=== PATIENT | female | born 1970 | race Caucasian/White ===

== ENCOUNTER → 2017-09-19 | Outpatient (CLI) | payer MEDICAID, SELFPAY | PROVIDERS: Family Provider Family Medicine; Visit Provider Family Medicine | DX: M77.9 Enthesopathy, unspecified (principal) | CPT/HCPCS: 73110 ==

== ENCOUNTER → 2018-01-06 16:13 | Outpatient (CLI) | payer MEDICAID, SELFPAY ==
--- NOTE | 2018-01-06 16:21 | MM_ITS ---
MM Dig SC mamm unilat LT CAD CAD Screening ORDERING PHYSICIAN : Sidney Anne MD PATIENT AGE: 47 years GENDER: Female HISTORY 47-year-old with right mastectomy. No hormones no new complaints noncontributory family history. Pacemaker COMPARISON: Previous bilateral mammograms: From 2013, 2014, 2016 TECHNIQUE: Standard CC and MLO images were obtained. R2 CAD reviewed. FINDINGS:LEFT BREAST: Minimal fibroglandular elements bilaterally which with even some regression of such since 2013 and 2014 . No dominant mass nor suspicious calcifications. No architectural distortion. CAD computer review highlights no areas of concern either a minimal glandular density at the lateral retroareolar region is stable enlarged. Only the left breast imaged IMPRESSION: Stable left breast. No new areas of concern . Follow-up in one year recommended BI-RADS Category: 1 Negative RECOMMENDED FOLLOW-UP: 1YR - 1 YEAR FOLLOW-UP (A letter has been sent to the patient regarding results of the study.)
== END ==
PROVIDERS: Family Provider Family Medicine; PCP Family Medicine; Visit Provider Family Medicine
DX: Z12.31 Encounter for screening mammogram for malignant neoplasm of breast (principal)
CPT/HCPCS: 77067

== ENCOUNTER → 2018-06-08 14:25 | Outpatient (POV) | payer MEDICAID, SELFPAY | PROVIDERS: Family Provider Family Medicine; PCP Family Medicine; Visit Provider Specialist | DX: M54.42 Lumbago with sciatica, left side (principal); M54.41 Lumbago with sciatica, right side; G89.29 Other chronic pain | CPT/HCPCS: 95886; 95908 ==

== ENCOUNTER → 2019-02-02 13:29 | Outpatient (CLI) | payer BC, SELFPAY ==
--- NOTE | 2019-02-02 13:33 | CA_ITS ---
PROCEDURE: 2-D M-mode and color Doppler study INDICATIONS FOR THE TEST: Chest pain COPD+ Heart Murmur Tobacco Smoking+ Palpitations Fatigue Syncope Edema Hypertension Diabetes Mellitus Rheumatic Fever SOB+MADDOX Obesity Hyperlipidemia Family History HD Additional History Pacemaker, CM, Rt mastectomy hx of breast cancer PATIENT INFORMATION HEIGHT: 67 WEIGHT: 162 GENDER: Female B/P: 140/78 2-D/M-MODE INTERPRETATION: 2-D MEASUREMENTS OBSERVED VALUES IN CMS Right Ventricular Dimension (RVDd) 1.4 Interventricular Septum (Thickness)(IVsd) 0.7 Left Ventricular Internal Dimensions(LVIDd) 5.1 Left Ventricular Posterior Wall (Thickness)(LVPWd) 0.7 Aortic Root 2.5 Aortic Cusp Separation 2.0 Left Atrial Dimensions (LAD) 3.2 2D 1. Left Atrium is mildly enlarged, left ventricle is normal size, there is no concentric left ventricular hypertrophy, visually estimated ejection fraction 50% with no regional wall motion abnormality. 2. The right atrium and right ventricle are normal size and contractility. There is a pacemaker lead seen right atrium and right ventricle. 3. The aortic valve is minimally thickened and fibrosed. 4. The mitral and tricuspid valve are grossly normal. 5. Pulmonic valve is poorly present. 6. No significant pericardial effusion noted DOPPLER INTERROGATION: Doppler interrogation of the aortic, mitral and tricuspid valvular presence of mild mitral and tricuspid regurgitation, tricuspid regurgitation jet velocity is inadequate for calculation of the right ventricular systolic pressure, grade 1 diastolic dysfunction seen without tissue Doppler evidence of raised left atrial pressure. CONCLUSION: 1. Mildly enlarged left atrium, normal left ventricular size, visually estimated ejection fraction 50% with no regional wall motion abnormality, grade 1 diastolic dysfunction seen without tissue Doppler evidence of raised left atrial pressure. 2. Mild mitral and tricuspid regurgitation 3. No significant pericardial effusion noted.
== END ==
PROVIDERS: PCP Family Medicine; Visit Provider Urology
DX: I42.9 Cardiomyopathy, unspecified (principal); R06.02 Shortness of breath; Z95.0 Presence of cardiac pacemaker
CPT/HCPCS: 93306

== ENCOUNTER → 2019-09-21 14:06 | Outpatient (POV) | payer BC, SELFPAY | PROVIDERS: Visit Provider Dermatology | DX: Z00.00 Encounter for general adult medical examination without abnormal findings (principal) ==

== ENCOUNTER → 2020-02-02 09:36 | Outpatient (CLI) | payer BC, SELFPAY ==
--- NOTE | 2020-02-02 09:40 | MM_ITS ---
PROCEDURE: MM DIG SC MAMM UNILAT LT CAD Digital Breast Tomosynthesis Included CLINICAL INDICATION: SCREENING There has been a previous right mastectomy, there are no current complaints COMPARISON: DMDXUAVL DIG MAMM-DX UNI ADD VIEWS-LT from 01/11/2015 DMSUL DIG MAMM-SCREENING UNI-LT from 04/12/2016 SCUNILT MM Dig SC mamm unilat LT CAD from 01/06/2018 TECHNIQUE: Standard CC and MLO images and 3D Tomosynthesis was obtained. R2 CAD reviewed. FINDINGS: Scattered fibroglandular densities are seen on a background of fatty breast parenchyma. There is no new or suspicious lesion in the breast and there are no suspicious microcalcifications. IMPRESSION: Primarily fatty type breast parenchyma with no suspicious lesions seen BI-RAD Category: 1 Negative FOLLOW-UP: 1YR 1 Year Follow-up (A letter has been sent to the patient regarding results of the study.) Dictated by: Dr. Osito Sevilla MD 02/06/2020 17:[address] Osito Sevilla MD in [place] 02/06/2020 17:25
== END ==
PROVIDERS: PCP Family Medicine; Visit Provider Family Medicine
DX: Z12.31 Encounter for screening mammogram for malignant neoplasm of breast (principal)
CPT/HCPCS: 77063; 77067

== ENCOUNTER → 2020-03-06 18:16 | Outpatient (CLI) | payer BC, SELFPAY ==
--- NOTE | 2020-03-06 18:22 | XR_ITS ---
PROCEDURE: XR MULTIPLE SPINE 6+V CLINICAL INDICATION: CONTUSION OF BACK COMPARISON: Posttraumatic pain FINDINGS: Six views of the cervical spine show no obvious fracture or dislocation. There is mild foraminal narrowing bilaterally at C3-C4 and there is head tilt to the right. Mild facet hypertrophic change C3-C4 and C5. Two views of the T-spine show no acute fracture. Bipolar pacemaker is present from left subclavian approach IMPRESSION: No acute finding. Degenerative change cervical spine Dictated by: Rainer Corrales MD 03/07/2020 05:53 Electronically signed by Rainer Corrales MD in [place] 03/07/2020 05:53
== END ==
PROVIDERS: PCP Family Medicine; Visit Provider Family Medicine
DX: S20.229A Contusion of unspecified back wall of thorax, initial encounter (principal)
CPT/HCPCS: 72084

== ENCOUNTER → 2022-07-01 12:39 | Outpatient (CLI) | payer BC, SELFPAY ==
--- NOTE | 2022-07-01 12:43 | MM_ITS ---
PROCEDURE INFORMATION: Exam: MG Left Screening 3D Mammography Exam date and time: 07/01/2022 12:56 PM Age: 52 years old Clinical indication: Screening. Personal history of right breast cancer, status post right mastectomy. TECHNIQUE: Imaging protocol: Left Screening tomosynthesis and 2D mammography including computer-aided detection (CAD) when performed. COMPARISON: 1. MG MM DIG SC MAMM UNILAT LT CAD 02/02/2020 9:51 AM 2. MG SCUNILT MM Dig SC mamm unilat LT CAD 01/06/2018 4:27 PM 3. MG DMSUL DIG MAMM-SCREENING UNI-LT 04/12/2016 3:43 PM 4. MG DMDXUAVL DIG MAMM-DX UNI ADD VIEWS-LT 01/11/2015 2:30 PM FINDINGS: MAMMOGRAPHY: Breast composition: There are scattered areas of fibroglandular density. Mass: None. Architectural distortion: None. Calcifications: No suspicious calcifications. Asymmetric density: None. Skin thickening: None. Axillary adenopathy: None. Other findings: Battery pack in the left axilla which limits evaluation and accentuates the importance of clinical breast exam. IMPRESSION: No mammographic evidence of malignancy. Annual screening is recommended unless otherwise clinically indicated. ASSESSMENT: BI-RADS Category 1: Negative
== END ==
PROVIDERS: PCP Family Medicine; Visit Provider Family Medicine
DX: Z12.31 Encounter for screening mammogram for malignant neoplasm of breast (principal)
CPT/HCPCS: 77063; 77067

== ENCOUNTER 2022-10-11 09:57 | Day surgery (SDC) | payer BC, SELFPAY ==
[2022-10-11] VITALS (7 sets, daily range): BP systolic 71–119; BP diastolic 39–71; PULSE 60–61; RESP 19–20; TEMP 36.1; O2SAT 93–99; BMI 23.9
--- NOTE | 2022-10-11 07:07 | IR_ITS ---
APPROVED REPORT Patient Location: Outpatient [facility] Adjuster: KYLAH King RT (R) PROCEDURES 1. Pocket Revision 2. Removal of old pacemaker 3. Capping of chronic right atrial lead 4. Insertion of permanent right atrial lead 5. Implant of permanent pacemaker INDICATION Diminished Signal from right atrial lead. Damage to the right atrial lead. Informed consent obtianed prior to procedure, Informed consent was obtained prior to the procedure. COMPLICATIONS None Estimated Blood Loss: Less than 10 ML TECHNIQUE 1% Lidocaine with epinephrine used to anesthetized the left anterior aspect of the chest. Scalpel was used to make the initial cutaneous incision then was used to dissect down tinto the fascia and existing pacemaker generator. The generator was removed from the existing pocket. Digital manipulation was required along with intermitten use of a scalpel to revise the pocket. The atrail lead was removed from the generator. The chronic right atrial lead was capped. The patient was then placed in Trendelenburg position and the subclavian vein was accessed once via the Selinger technique, there is one wire in the vein. A 6 Upper Sorbian sheath was placed under fluoroscopic guidance into the subclavian vein over the wire. The dilator was removed from the sheath. Using fluoroscopic guidance, the atrial lead was the placed into the right atrial appendage and screwed and secured in place. Electrical interrogation demonstrated acceptable thresholds and voltage number. The atrial lead was then secured into place using 3-0 silk. 1 gram of Ancef was used to flush the pocket. Following the pacemaker generator being secured to the fascia and in place, Monocryl was used to close the subcutaneous layers while mert were used to close the cutaneous layer. A pressure dressing was placed and the patient was transferred to the postop holding area in stable condition for postoperative care. INTERROGATION Chronic Atrial lead model number: [id number] Chronic Atrial lead serial number: [id number] P-wave: 3.5 mV Impedence: 860 Ohms Threshold: 0.4ms@1.0v Pacing Parameters: Mode: DDD Base/Max Track: 60/110 bpm ICD Rate Cutoffs: VT: 175 bpm. 2.5 sec, ATP, 41Jx8 VT-1: 155 mpb 2.5 sec Monitor only VF: 220 bpm 1.0 sec Quick convert, 41 J x 8 No diaphragmatic stimulation at 10 volts. IMPRESSION Post Op Wound Care PLAN 1. Post Op Wound Care Electronically signed by : Ulises Fields MD 10/14/2022 09:42:20
[2022-10-11 11:05] LABS: Basophils # 0.1 K/mm3 (0-0.2); Basophils % 1.1 % (0.1-2.0); Eosinophils # 0.2 K/mm3 (0.0-0.4); Eosinophils % 2.6 % (0.1-12.0); Hematocrit 38.6 % (37.0-47.0); Hemoglobin 12.5 g/dL (12.2-16.2); Lymphocytes # 1.7 K/mm3 (0.7-4.5); Lymphocytes % 22.6 % (10-50); Mean Corpuscular HGB Conc 32.4 g/dL (31.8-35.4); Mean Corpuscular Hemoglobin 30.3 pg (27.0-31.2); Mean Corpuscular Volume 93.4 fl (81-99); Mean Platelet Volume 8.6 fl (7.4-10.4); Monocytes # 0.2 K/mm3 (0.1-1.0); Monocytes % 3.1 % (1.7-9.3); Neutrophils # 5.1 K/mm3 (1.8-7.8); Neutrophils % 70.5 % (37.0-80.0); Platelet Count 294 K/mm3 (142-424); Red Blood Count 4.13 M/mm3 (4.20-5.40); Red Cell Distribution Width 13.4 % (11.5-17.5); White Blood Count 7.3 K/mm3 (4.8-10.8)
[2022-10-11 11:06] LABS: Chloride 109 mmol/L (98-107); Sodium 141 mmol/L (136-145)
[2022-10-11 11:07] LABS: Potassium 3.9 mmoL/L (3.5-5.1)
[2022-10-11 11:10] LABS: Anion Gap 8.9 mEq/L (5-15); Blood Urea Nitrogen 9 mg/dl (7-17); Calcium 8.8 mg/dl (8.4-10.2); Carbon Dioxide 27 mmol/L (22.0-30.0); Creatinine Clearance Estimated 70 mL/min (50-200); Estimated Glomerular Filt Rate 58 ml/min (>60); GFR (African American) 70 ML/MIN (>60); Glucose 106 mg/dl (74-100)
--- NOTE | 2022-10-11 12:57 | P.PN_ITS ---
[facility] Disclaimer: The information contained in this section may have been updated after the patient was seen, as this information can be updated by other users. Medical History Cardiac pacemaker in situ Cardiomyopathy History of pacemaker PAF (paroxysmal atrial fibrillation) SOB (shortness of breath) Surgical History History of hysterectomy History of knee surgery Social History Smoking Status: Current every day smoker alcohol intake: never substance use type: marijuana current occupational status: employed and disabled Travel in the last 8 weeks: Inside the [place] [facility] Anesthesia Checklist Patient Identification Patient Identification: Arm Band and Verbal (Name & ) Structural Data Admitted From: Home Planned Operative Procedure/s: Lead revision Consent for Planned Operative Procedure(s) Verified: Yes NPO Status Verified Time NPO: 00:00 Airway Assessment C-Spine Mobility Assessed: Yes TMJ Mobility Assessed: Yes Dentition: Poor Dentition Neurological Assessment Level of Consciousness: Awake Hx Seizures: No Numbness or tingling in extremities: No Anesthesia Plan Anesthesia Risk discussed: Yes Anesthesia Plan: Verified ASA Class: III Anesthesia Type: MAC
--- NOTE | 2022-10-11 14:09 | XR_ITS ---
FINAL REPORT CLINICAL HISTORY: Confirm pacemaker/AID placement COMPARISON: 08/20/2017 FINDINGS: A single PA view of the chest was obtained. There is now a 3 lead pacemaker. The cardiac and mediastinal silhouettes are within normal limits. There are bilateral upper lobe opacities, could be atelectasis but pneumonia is not excluded. There is no effusion or pneumothorax. No acute osseous abnormality is identified. IMPRESSION: Three lead pacemaker. Bilateral upper lobe opacities, may represent atelectasis or pneumonia. Reviewed, Interpreted and Dictated by Chandni Forrest MD Transcribed by Deisi Auguste Authenticated and [facility]
== END 2022-10-11 15:51 | disposition home or self-care (01) ==
LOC: CATHLAB 10:02
PROVIDERS: PCP Family Medicine; Visit Provider Internal Medicine
DX: T82.110A Breakdown (mechanical) of cardiac electrode, initial encounter (principal); F17.210 Nicotine dependence, cigarettes, uncomplicated; Z79.899 Other long term (current) drug therapy; I48.0 Paroxysmal atrial fibrillation; I42.9 Cardiomyopathy, unspecified
CPT/HCPCS: 33216; 71045; 80048; 85025; C1898; J2704

== ENCOUNTER 2022-10-18 14:02 | Emergency (ER) | payer BC, SELFPAY ==
--- NOTE | 2022-10-18 14:15 | XR_ITS ---
FINAL REPORT CLINICAL HISTORY: Dyspnea, CP COMPARISON: 10/11/2022 FINDINGS: SINGLE-VIEW CHEST The heart size is normal. The mediastinum is normal. Left-sided pacer is identified. The lungs are clear. There is no pleural effusion. There is no pneumothorax. IMPRESSION: No acute cardiopulmonary process. Reviewed, Interpreted and Dictated by Sidney Murry MD Transcribed by Deisi Auguste Authenticated and [facility]
--- NOTE | 2022-10-18 14:15 | ECG_ITS ---
APPROVED REPORT Exam: Resting ECG HR:69 bpm ECG Measurements Heart Rate 69 AXES [place] 163 P 75 QRSd 90 QRS 39 QT 401 T 56 QTc 420 Conclusion SINUS RHYTHM NORMAL ECG UNCONFIRMED REPORT Electronically signed by : Garland Bellamy MD 10/18/2022 15:42:51
--- NOTE | 2022-10-18 14:17 | HMH.EDCP ---
Discharge Plan Disposition Patient Disposition: Home, Self-Care Condition: Good Chief Complaint: Chest Pain Prescriptions Prescriptions: No Action albuterol sulfate [ProAir HFA] 90 mcg/actuation HFA aerosol inhaler 2 puff INHALATION Q4-6H PRN (Reason: copd) clonazepam [Klonopin] 0.5 mg tablet 0.5 mg PO TID gabapentin [Neurontin] 100 mg capsule 600 mg PO TID quetiapine 50 mg tablet 100 mg PO QHS Label Comments: Take one tablet at bedtime sertraline 100 mg tablet 100 mg PO QDAY coenzyme Q10 [Co Q-10] 200 mg capsule 200 mg PO DAILY Label Comments: TAKE ONE CAPSULE BY MOUTH EVERY DAY rosuvastatin 10 mg tablet 10 mg PO HS Label Comments: TAKE ONE TABLET BY MOUTH EVERY DAY AT BEDTIME cyanocobalamin (vitamin B-12) 1,000 mcg tablet 1,000 mcg PO DAILY Label Comments: TAKE ONE TABLET BY MOUTH EVERY DAY omeprazole 20 mg capsule,delayed release(DR/EC) 20 mg PO DAILY bisoprolol fumarate 5 mg tablet 5 mg PO DAILY Referrals Follow up/Referrals: Sidney Anne MD [Primary Care Provider] - See instructions Ulises Fields MD [Staff Physician] - 10/21/22 11:00 am Activity Restrictions/Add. Instructions Additional Instructions/Restrictions: Return to the emergency department immediately if you feel worse in any way. Follow-up with Dr. Fields on Friday at 11 AM. He is expecting you in his office. Take all medications as prescribed. Clinical Impressions Clinical Impression: Cardiac pacemaker in situ, Chest pain Instructions Patient Instructions: DI for Atypical Chest Pain Discharge ED Provider: Colton Hodges Chest Pain HPI General Chief Complaint: Chest Pain Stated Complaint: Pacemaker rewired 10/11 Side/back pain Time Seen by Provider: 10/18/22 14:17 Mode of Arrival: Ambulatory History of Present Illness HPI narrative: The patient presents to the emergency department complaining of right sided chest discomfort/pain/tightness. This has been ongoing since last Friday. She had a pacemaker placed on Friday. She states that she is taking all medications as prescribed. She smokes about 1/2 pack/day. She also complains of shortness of breath associated with her chest discomfort. complaint: chest pain Onset (ago): day(s) (6) Related Data Home Medications Medication Instructions Recorded Confirmed albuterol sulfate 90 mcg/actuation 2 puff inhalation Q4-6H PRN copd 10/20/17 10/11/22 aerosol inhaler (ProAir HFA) clonazepam 0.5 mg tablet (Klonopin) 0.5 mg PO TID Anxiety 10/20/17 10/11/22 gabapentin 100 mg capsule 600 mg PO TID Pain 01/26/19 10/11/22 (Neurontin) coenzyme Q10 200 mg capsule (Co 200 mg PO DAILY Supplement 03/20/22 10/11/22 Q-10) cyanocobalamin (vitamin B-12) 1,000 mcg PO DAILY Supplement 03/20/22 10/11/22 1,000 mcg tablet omeprazole 20 mg capsule,delayed 20 mg PO DAILY GERD 03/20/22 10/11/22 release quetiapine 50 mg tablet 100 mg PO QHS Depression 03/20/22 10/11/22 rosuvastatin 10 mg tablet 10 mg PO HS Cholesterol 03/20/22 10/11/22 sertraline 100 mg tablet 100 mg PO QDAY Depression 03/20/22 10/11/22 bisoprolol fumarate 5 mg tablet 5 mg PO DAILY htn 10/11/22 10/11/22 Allergies Allergy/AdvReac Type Severity Reaction Status Date / Time hydrocodone [HYDROCODONE] Allergy Intermediate Verified 10/07/22 09:59 [facility] Disclaimer: The information contained in this section may have been updated after the patient was seen, as this information can be updated by other users. Medical History Cardiac pacemaker in situ Cardiomyopathy History of pacemaker PAF (paroxysmal atrial fibrillation) SOB (shortness of breath) Surgical History History of hysterectomy History of knee surgery Social History (Updated 10/11/22 @ 12:57 by Argelia Flynn CRNA) Smoking Status: Current ever
[2022-10-18 14:40] VITALS: BP 104/75; PULSE 69; RESP 18; TEMP 36.8; O2SAT 97; BMI 20.7
[2022-10-18 14:46] VITALS: BP 104/75; PULSE 63; RESP 16; O2SAT 97
[2022-10-18 14:46] LABS: Basophils # 0.1 K/mm3 (0-0.2); Basophils % 0.8 % (0.1-2.0); Eosinophils # 0.2 K/mm3 (0.0-0.4); Eosinophils % 1.4 % (0.1-12.0); Hematocrit 38.2 % (37.0-47.0); Hemoglobin 12.4 g/dL (12.2-16.2); Lymphocytes % 15.5 % (10-50); Mean Corpuscular HGB Conc 32.3 g/dL (31.8-35.4); Mean Corpuscular Hemoglobin 30.5 pg (27.0-31.2); Mean Corpuscular Volume 94.4 fl (81-99); Mean Platelet Volume 8.5 fl (7.4-10.4); Monocytes # 0.5 K/mm3 (0.1-1.0); Monocytes % 3.6 % (1.7-9.3); Neutrophils # 10.1 K/mm3 (1.8-7.8); Neutrophils % 78.8 % (37.0-80.0); Platelet Count 314 K/mm3 (142-424); Red Blood Count 4.05 M/mm3 (4.20-5.40); Red Cell Distribution Width 13.3 % (11.5-17.5); White Blood Count 12.8 K/mm3 (4.8-10.8)
[2022-10-18 14:52] LABS: Chloride 101 mmol/L (98-107); Sodium 139 mmol/L (136-145)
[2022-10-18 14:53] LABS: Potassium 4.1 mmoL/L (3.5-5.1)
[2022-10-18 14:55] LABS: Blood Urea Nitrogen 13 mg/dl (7-17); Creatinine Clearance Estimated 58 mL/min (50-200); Estimated Glomerular Filt Rate 58 ml/min (>60); GFR (African American) 70 ML/MIN (>60)
[2022-10-18 14:56] LABS: Anion Gap 12.1 mEq/L (5-15); Calcium 8.7 mg/dl (8.4-10.2); Carbon Dioxide 30 mmol/L (22.0-30.0); Glucose 110 mg/dl (74-100)
[2022-10-18 15:00] VITALS: BP 106/71; PULSE 60; RESP 14; O2SAT 98
[2022-10-18 15:06] LABS: NT Pro Brain Natriuretic Pep. 962 pg/mL (0-125)
[2022-10-18 15:09] LABS: Troponin I < 0.01 ng/ml (0.00-0.034)
[2022-10-18 15:15] VITALS: PULSE 61; RESP 14; O2SAT 99
[2022-10-18 15:30] VITALS: BP 107/73; PULSE 60; RESP 13; O2SAT 100
--- NOTE | 2022-10-18 15:37 | PC.NURSE ---
DR CLEMENT SPEAKING TO DR SAHU
[2022-10-18 15:44] VITALS: BP 107/73; PULSE 60; RESP 19; TEMP 36.8; O2SAT 97
== END 2022-10-18 15:45 | disposition home or self-care (01) ==
PROVIDERS: Emergency Provider Emergency Medicine; PCP Family Medicine
DX: R07.89 Other chest pain (principal); Z95.0 Presence of cardiac pacemaker; I48.0 Paroxysmal atrial fibrillation; I42.9 Cardiomyopathy, unspecified; F17.210 Nicotine dependence, cigarettes, uncomplicated; F12.90 Cannabis use, unspecified, uncomplicated; Z90.710 Acquired absence of both cervix and uterus
CPT/HCPCS: 71045; 80048; 83880; 84484; 85025; 93005; 99285

== ENCOUNTER → 2023-06-26 14:39 | Outpatient (CLI) | payer BC, SELFPAY ==
--- NOTE | 2023-06-26 14:40 | CT_ITS ---
FINAL REPORT TECHNIQUE: Axial CT images of the chest were obtained without contrast. Low-dose protocol was utilized. This study was performed with techniques to keep radiation doses as low as reasonably achievable (ALARA). Individualized dose reduction techniques using automated exposure control or adjustment of mA and/or kV according to the patient's size were employed. CLINICAL HISTORY: lung cancer screening. Smokes half pack of cigarettes per day for 38 yrs. Has COPD & pacemaker. Exposed to second hand smoke. Hx of breast cancer 2008. COMPARISON: None FINDINGS: CT CHEST WITHOUT, LOW DOSE SCREENING CT Di Vol: 2.90 mGy DLP: 114.90 mGy*cm Left subclavian pacer is present. There are several borderline sized mediastinal nodes. There are postoperative changes in the right anterior chest wall. The heart size is normal. There is no pleural or pericardial effusion. The lung windows show a 2 mm left lower lobe nodule seen on image 52. There are multiple other less than 5 mm pleural-based nodules. No dominant mass or nodule is noted. There is mild emphysema and mild scarring. There is a calcified granuloma in the inferior lingula. Limited images of the upper abdomen demonstrate no acute findings. IMPRESSION: LR Category 2: 12 month follow-up low-dose chest CT is recommended. Reviewed, Interpreted and Dictated by Walker Mei III, MD Transcribed by Raysa Humphries Authenticated and [facility]
== END ==
PROVIDERS: PCP Family Medicine; Visit Provider Internal Medicine
DX: Z87.891 Personal history of nicotine dependence (principal); Z12.2 Encounter for screening for malignant neoplasm of respiratory organs; I42.9 Cardiomyopathy, unspecified; I48.0 Paroxysmal atrial fibrillation; I51.89 Other ill-defined heart diseases
CPT/HCPCS: 71271

== ENCOUNTER → 2023-07-15 13:52 | Outpatient (CLI) | payer BC, SELFPAY ==
--- NOTE | 2023-07-15 13:56 | MM_ITS ---
PROCEDURE INFORMATION: Exam: MG Bilateral Screening 3D Mammography Exam date and time: 07/15/2023 1:58 PM Age: 53 years old Clinical indication: Screening examination. Personal history of right breast cancer, mastectomy and chemotherapy. TECHNIQUE: Imaging protocol: Bilateral Screening tomosynthesis and 2D mammography including computer-aided detection (CAD) when performed. COMPARISON: 1. MG MM DIG SC MAMM UNILAT LT CAD 07/01/2022 12:56 PM 2. MG MM DIG SC MAMM UNILAT LT CAD 02/02/2020 9:51 AM 3. MG SCUNILT MM Dig SC mamm unilat LT CAD 01/06/2018 4:27 PM 4. MG DMSUL DIG MAMM-SCREENING UNI-LT 04/12/2016 3:43 PM FINDINGS: MAMMOGRAPHY: Breast composition: There are scattered areas of fibroglandular density. Mass: None. Architectural distortion: None. Calcifications: No suspicious calcifications. Asymmetric density: None. Skin thickening: None. Axillary adenopathy: None. Other findings: Pacemaker in the left axilla, limits evaluation and accentuates the importance of clinical breast exam. IMPRESSION: No mammographic evidence of malignancy. Annual screening is recommended unless otherwise clinically indicated. ASSESSMENT: BI-RADS Category 1: Negative
== END ==
PROVIDERS: PCP Family Medicine; Referring Provider Internal Medicine Hematology & Oncology; Visit Provider Family Medicine
DX: Z12.31 Encounter for screening mammogram for malignant neoplasm of breast (principal)
CPT/HCPCS: 77063; 77067

== ENCOUNTER 2024-07-14 08:32 | Outpatient (CLI) | payer BC, SELFPAY ==
--- NOTE | 2024-07-14 | MM_ITS ---
PROCEDURE INFORMATION: Exam: MG Left Screening 3D Mammography Exam date and time: 07/14/2024 8:21 AM Age: 54 years old Clinical indication: Screening examination. Personal history of right breast cancer status post mastectomy. TECHNIQUE: Imaging protocol: Left Screening tomosynthesis and 2D mammography including computer-aided detection (CAD) when performed. COMPARISON: 1. MG MM DIG SCREENING MAMM BI W/CAD 07/15/2023 1:58 PM 2. MG MM DIG SC MAMM UNILAT LT CAD 07/01/2022 12:56 PM FINDINGS: MAMMOGRAPHY: Breast composition: There are scattered areas of fibroglandular density. Mass: No suspicious masses. Architectural distortion: None. Calcifications: No suspicious calcifications. Asymmetric density: None. Skin thickening: None. Axillary adenopathy: None. IMPRESSION: No mammographic evidence of malignancy. Annual screening is recommended unless otherwise clinically indicated. ASSESSMENT: BI-RADS Category 1: Negative.
== END 2024-07-14 23:59 | disposition home or self-care (01) ==
LOC: RAD 08:33
PROVIDERS: PCP Family Medicine; Visit Provider Family Medicine
DX: Z12.31 Encounter for screening mammogram for malignant neoplasm of breast (principal)
CPT/HCPCS: 77063; 77067

== ENCOUNTER 2025-01-06 13:01 | Outpatient (CLI) | payer BC, SELFPAY ==
[2025-01-06] MEDS: ALBUTEROL 0.083% 2.5 MG/3 ML NEB IH (14:55)
--- NOTE | 2025-01-06 15:00 | CT_ITS ---
FINAL REPORT TECHNIQUE: Axial CT images of the chest were obtained without contrast. Coronal and sagittal reconstructed images were also obtained. Low-dose protocol was utilized. This study was performed with techniques to keep radiation doses as low as reasonably achievable (ALARA). Individualized dose reduction techniques using automated exposure control or adjustment of mA and/or kV according to the patient's size were employed. CLINICAL HISTORY: Lung cancer screening Current smoker, less than 1/2 ppd x 40 years COMPARISON: 06/26/2023 FINDINGS: CT CHEST WITHOUT, LOW DOSE SCREENING CTDl vol(mGy): 2.90 DLP (mGy-cm): 116.46 There is streak artifact arising from the left upper anterior chest wall pacemaker. There is no axillary adenopathy. There is no hilar or mediastinal adenopathy. The heart size is normal. There is no pericardial or pleural effusion. Lung window images demonstrate a pleural-based nodule in the periphery of the right base measuring 4 mm, best seen on image 72 series 3. There is a pleural-based nodule in the posterior left base measuring 3 mm, best seen on image 74 series 3. Allowing for differences in slice collection, these findings appear stable. There is biapical pleural and parenchymal scarring. Limited images of the upper abdomen are unremarkable. IMPRESSION: Stable bilateral pleural-based nodules. Lung RADS category 2. Recommend 12 month follow-up low-dose chest CT per Fleischner criteria. Reviewed, Interpreted and Dictated by Fabian Paul MD Transcribed by Sandra Meade Authenticated and [facility]
== END 2025-01-06 23:59 | disposition home or self-care (01) ==
LOC: RT 13:04
PROVIDERS: PCP Family Medicine; Visit Provider Physician Assistant
DX: J43.9 Emphysema, unspecified (principal); F17.210 Nicotine dependence, cigarettes, uncomplicated; R91.8 Other nonspecific abnormal finding of lung field; Z12.2 Encounter for screening for malignant neoplasm of respiratory organs
CPT/HCPCS: 71271; 94060; 94618; 94726; 94729

== ENCOUNTER 2025-03-19 10:50 | Outpatient (CLI) | payer BC, SELFPAY ==
--- OUTSIDE RECORDS SUMMARY | 2024-10-04 11:15 | XMS_ITS ---
Author Organization [facility] Address [address] [facility] [address] [place], [place] [id number] Care Team Providers Care Church Musician Name Role Phone Evelio Anne Primary Care Provider [phone] Allergies Allergen (clinical drug ingredient) Drug/Non Drug Allergy documented on EMR Reaction Allergy Type Onset Date Status hydrocodone HYDROcodone Unknown Drug Allergy Act rc Results Component Value Reference Range Notes P-Basic Metabolic Panel (BMP ) Reviewed date:10/06/2024 08:29:30 AM Interpretation:Cr 1.14, gfr 56 Performing Lab: Notes/Report: Test performed by [facility], [place] [address] [place] [address] , [address], [place] [address] Gwyn Stallworth MD, Water Softener Servicer CLIA: [id number] Sodium 138 135-145 mmol/L Potassium 4.6 3.5-5.3 mmol/L Chloride 98 97-108 mmol/L CO2 32 22-32 mmol/L Glucose 88 65-99 mg/dL BUN 8 6-20 mg/dL Creatinine 1.14 0.50-1.00 mg/dL Calcium 9.4 8.6-10.4 mg/dL eGFR by Creatinine 56 >59 mL/min/1.73m2 REASON FOR VISIT 4 months, Needs Tdap & shingles vaccine Medications Medication SIG (Take, Route, Frequency, Duration) Notes Start Date End Date Status KlonoPIN 1 MG 1/2 tab Orally 3 trevin es a day; Duration: 30 day(s) 07/27/2024 Active QUEtiapine Fumarate 50 MG 1 tablet at be dtime Orally Once a day; Duration: 90 days Active Gabapentin 600 MG 1 tab(s) orally 3 ti mes a day; Duration: 30 days 08/26/2024 Active CoQ10 200 MG as directed orally o nce a day; Duration: 90 days Not-Taking Vitamin B-12 1000 MCG TAKE ONE TABLET BY MOUTH EVERY DAY; Duration: 120 Active Bisoprolol Fumarate 5 MG 1 tab(s) orally once a day; Duration: 90 days Active Albuterol Sulfate HFA 108 (90 Base) MCG/ACT 1 puff as needed Inhalation every 4 hrs 11/25/2023 Active Vitamin D3 50 MCG (2000 UT) 1 capsule Orally Once a day; Duration: 30 day(s) Active Rosuvastatin Calcium 10 MG 1 tab(s) orally At Bed Time; Duration: 90 days Active Sertraline HCl 100 MG 1 1/2 orally once a day; Duration: 30 days Active Vital Signs Blood pressure systolic 102 mm Hg 10/04/19 25 Blood pressure diastolic 68 mm Hg 025 Heart Rate 60 /min 10/04/2024 Height 66.75 in 10/04/2024 Weight 155.4 lbs 10/04/2024 BMI 24.52 kg/m2 10/04/2024 Encounters Encounter Location Date Provider [facility] [address] [facility] [address] [phone] 10/04/2024 Evelio Anne Pulmonary emphysema, unspecified emphysema type J43.9 ; Renal insufficiency N28.9 ; History of cancer of right breast Z85.3 ; History of right mastectomy Z90.11 and Depression with anxiety F41.8 Assessments Encounter Date Diagnosis (ICD Code) Assessment Notes Treatment Notes Treatment Clinical Notes Section Notes 10/04/2024 Pulmonary emphysema, unspecified emphysema type (ICD-10 - J43.9) 10/04/2024 Renal insufficiency (ICD-10 - N28.9) 10/04/2024 History of cancer of right breast (ICD-10 - Z85.3) 10/04/2024 History of right mastectomy (ICD-10 - Z90.11) 10/04/2024 Depression with anxiety (ICD-10 - F41.8) Plan Of Treatment Medication Medication Name Sig Start Date Stop Date Notes QUEtiapine Fumarate 50 MG 1 tablet at be dtime Orally Once a day; Duration: 90 days Next Appt Details Follow Up: 4 Months, Reason: Provider Name:Evelio Demarco er, 07/25/2025 02:30:00 PM, [address] [facility] [address], [address], [place], [phone], Progress Notes * SHANDA MCGOVERNDOB:[birth year] (54 yo F)Acc No.[id number]:10/04/2024 Progress Notes Patient: SHANDA FRANCO Provider: Evelio Anne M.D. :1970 A ge:54 Y S ex:Female Date:10/04/2024 Address:[address] [place] [address], [place], [id number] Subjective: * Chief Complaints: * 1 . 4 months. 2. Needs Tdap & shingles vaccine. * HPI: P sychology: The patient is here today for a check up on Depression with anxiety. Pt states she is needing a refill Seroquel sent to [facility] in [facility]. Pt states she is still having pain in the left shoulder after a fall last year. Pt states she has pain with reaching behind her back and some pain with reaching above her head. Pt is not fasting. * ROS: D ERMATOLOGY: no R rodri. [...] arital Status: . * Medications: T aking Vitamin D3 50 MCG (2000 UT) Capsule 1 capsule Orally Once a day , Taking Sertraline HCl 100 MG Tablet 1 1/2 orally once a day , Taking Rosuvastatin Calcium 10 [...] tab Orally 3 times a day , Taking Gabapentin 600 MG Tablet 1 tab(s) orally 3 times a day , Taking Vitamin B-12 1000 MCG Tablet TAKE ONE TABLET BY MOUTH EVERY DAY , Not- Taking CoQ10 200 MG Capsule as directed orally once a day , Medication List reviewed and reconciled with the patient * Allergies: H YDROcodone. Objective: * Vitals: W t:155.4, Temp:97.9, BP:102/68, HR:60, Nurse:CARSON, Ht: 66.75, BMI:24.52. * Examination: G eneral Examination: General Appearance: N AD. H EENT: u nremarkable.?Oral cavity: n o lesions, mucosa moist and WNL, no erythema. N sahara: s upple, no lymphadenopathy. C hest: n ormal shape and expansion, pacemaker battery in place. H eart: RSR. L ungs: c lear to auscultation, rhonchi left clears with cough. N eurologic Exam: I ntact, gait normal. S kin: n ormal, no rash. P eripheral pulses: n ormal .?Extremities: n o leg edema. Assessment: * Assessment: 1. P ulmonary emphysema, unspecified emphysema type - J43.9 (Primary) 2 . R enal insufficiency - N28.9 3 . H istory of cancer of right breast - Z85.3 ? 4 . H istory of right mastectomy - Z90.11 5 . D epression with anxiety - F41.8 Plan: * Treatment: Value Reference Range B UN 8 6-20 - mg/dL * C alcium 9.4 8.6-10.4 - mg/dL * C hloride 98 97-108 - mmol/L * C O2 32 22-32 - mmol/L * C reatinine 1.14 H 0.50-1.00 - mg/dL * G lucose 88 65-99 - mg/dL * P otassium 4.6 3.5-5.3 - mmol/L * S odium 138 135-145 - mmol/L * e GFR by Creatinine 56 L >59 - mL/min/1.73m2 * Amy Hobbs 10/06/2024 8:29: 23 AM >See phone encounter 2.?Depression with anxiety? Refill QUEtiapine Fumarate Tablet, 50 MG, 1 tablet at bedtime, Orally, Once a day, 90 days, 90 Tablet, Refills 3.?? * Follow Up: 4 Months * Images: Billing Information: * Visit Code: 11518 Office Visit, Est Pt., Level 4. * Procedure Codes: * Electronic signature of Evelio Anne MD on 03/19/2025 at 10:52 AM EDT Sign off status: Pending * Provider: Evelio Anne M.D. Date: 10/04/2024 Generated for Eleno aquino/Meliton/eTransmitting on: 0 03/19/2025 10:52 AM EDT History and Physical Notes * Examination Category Sub-Category Detail Notes Category Not es General Examination HEENT: unremarkable Heart: RSR Lungs: clear to auscultatio n, rhonchi left clears with cough Extremities: no leg edema General Appearance: NAD Skin: normal, no rash Neurologic Exam: Intact, gait normal Neck: supple, no lymphaden opathy Oral cavity: no lesions, mucosa m oist and WNL, no erythema Peripheral pulses: normal Chest: normal shape and exp ansion, pacemaker battery in place
--- OUTSIDE RECORDS SUMMARY | 2025-03-10 10:30 | XMS_ITS ---
Author Organization [facility] Address [address] [facility] [address] [place], [place] [id number] Care Team Providers Care Head Silverman Name Role Phone Evelio Anne Primary Care Provider Allergies Allergen (clinical drug ingredient) Drug/Non Drug Allergy documented on EMR Reaction Allergy Type Onset Date Status hydrocodone HYDROcodone Unknown Drug Allergy Act rc Results Component Value Reference Range Notes P-Comprehensive Metabolic Pa jane (CMP) Reviewed date:03/18/2025 12:41:46 PM Interpretation:K+ 5.5, Cr 1.28, gfr 49 Performing Lab: Notes/Report: Test performed by [facility] [address] [place] [address] , [address], [place] [address] Gwyn Stallworth MD, Laboratory Secretary CLIA: [id number] Sodium 136 135-145 mmol/L Potassium 5.5 3.5-5.3 [...] 03/10/2025 Encounters Encounter Location Date Provider Diagnosis [facility] [address] [facility] [address] [place], [place] [id number] 03/10/2025 Evelio Anne Pulmonary emphysema, unspecified emphysema type J43.9 ; Vitamin B12 deficiency E53.8 ; Renal insufficiency N28.9 ; Status cardiac pacemaker Z95.0 and Depression with anxiety F41.8 Assessments Encounter Date Diagnosis (ICD Code) Assessment Notes Treatment Notes Treatment Clinical Notes Section Notes 03/10/2025 Pulmonary emphysema, unspecified emphysema type (ICD-10 - J43.9) 03/10/2025 Vitamin B12 deficiency (ICD-10 - E53.8) 03/10/2025 Renal insufficiency (ICD-10 - N28.9) 03/10/2025 Status cardiac pacemaker (ICD-10 - Z95.0) 03/10/2025 Depression with anxiety (ICD-10 - F41.8) Plan Of Treatment Medication Medication Name Sig Start Date Stop Date Notes Albuterol Sulfate HFA 108 (9 0 Base) MCG/ACT 1 puff as needed Inhalation every 4 hrs 11/25/2023 Next Appt Details Follow Up: 4 Months, Reason: Provider Name:Evelio Demarco er, 07/25/2025 02:30:00 PM, [address], [place], [place], [id number], Progress Notes * SHANDA MCGOVERNDOB:[birth year] (54 yo F)Acc No.[id number]:03/10/2025 Progress Notes Patient: SHANDA FRANCO Provider: Evelio Anne M.D. :1970 A ge:54 Y S ex:Female Date:03/10/2025 Address:[address] [place] [address], [place], [id number] Subjective: * Chief Complaints: * 1 . [...] 5 . D epression with anxiety - F41.8? Plan: * Treatment: 2. R enal insufficiency [...] PM EDT > See phone encounter * Follow Up: 4 Months * Images: Billing Information: * Visit Code: 78951 Office Visit, Est Pt., Level 4. * Procedure Codes: * Electronic signature of Evelio Anne MD on 03/19/2025 at 10:53 AM EDT Sign off status: Pending * Provider: Evelio Anne M.D. Date: 03/10/2025 Generated for Eleno aquino/Meliton/eTransmitting on: 03/19/2025 10:53 AM EDT History and Physical Notes * [...]
--- OUTSIDE RECORDS SUMMARY | 2025-03-18 08:41 | XMS_ITS ---
Author Organization [facility] Address [address] [place] [address] [address] [facility] [place] [phone] Care Team Providers Care Management Manager Name Role Phone Evelio Anne Primary Care Provider [phone] REASON FOR VISIT Test results Encounters Encounter Location Date Provider Diagnosis [facility] [address] [facility] [address] [place] [id number] 03/18/2025 Evelio Anne Hyperkalemia E87.5 Assessments Encounter Date Diagnosis (ICD Code) Assessment Notes Treatment Notes Treatment Clinical Notes Section Notes 03/18/2025 Hyperkalemia (ICD-10 - E87.5) Plan Of Treatment Pending Test Test Name Order Date H-BMP 03/18/2025 Next Appt Details Provider Name:Evelio Demarco er, 07/25/2025 02:30:00 PM, [address], [address], [place], [place], [id number], Progress Notes * SHANDA MCGOVERNDOB:[birth year] (54 yo F)Acc No.[id number]:03/18/2025 Patient: SHANDA FRANCO :1970 A ge:54 Y S ex:Female Address:[address] [place] [id number] Subjective: * Chief Complaints: * T est results * Medical History: * Surgical History: * Hospitalization/Major Diagno stic Procedure: * Medications: Objective: * Vitals: * Physical Examination: Assessment: * Assessment: 1. H yperkalemia - E87.5 (Primary) Plan: * Treatment: * Procedure Codes: * true * Date: Generated for Eleno aquino/Meliton/Radha on: 0 03/19/2025 10:52 AM EDT
--- OUTSIDE RECORDS SUMMARY | 2025-03-19 10:53 | XMS_ITS | Patient Health Record ---
Author Organization [facility] Address [address] [facility] [address] [facility] [address] [place] [id number] Care Team Providers Care Computer Project Manager Name Role Phone Evelio Anne Primary Care Provider Darinel Licona Unavailable [phone] Allergies Allergen (clinical drug ingredient) Drug/Non Drug Allergy documented on EMR Reaction Allergy Type Onset Date Status hydrocodone HYDROcodone Unknown Drug Allergy Act rc Results Component Value Reference Range Notes P-Basic Metabolic Panel (BMP ) Reviewed date:10/06/2024 08:29:30 AM Interpretation:Cr 1.14, gfr 56 Performing Lab: Notes/Report: Test performed by [facility] [address] [place], [place] [address] , [address], [place] [address] Gwyn Stallworth MD, Infrastructure Engineer CLIA: [id number] Sodium 138 135-145 mmol/L Potassium 4.6 3.5-5.3 mmol/L Chloride 98 97-108 mmol/L CO2 32 22-32 mmol/L Glucose 88 65-99 mg/dL BUN 8 6-20 mg/dL Creatinine 1.14 0.50-1.00 mg/dL Calcium 9.4 8.6-10.4 mg/dL eGFR by Creatinine 56 >59 mL/min/1.73m2 P-Comprehensive Metabolic Pa jane (CMP) Reviewed date:03/18/2025 12:41:46 PM Interpretation:K+ 5.5, Cr 1.28, gfr 49 Performing Lab: Notes/Report: Test performed by [facility] [address] [place] [address] , [address], [place] [address] Gwyn Stallworth MD, Infrastructure Engineer CLIA: [id number] Sodium 136 135-145 mmol/L Potassium 5.5 3.5-5.3 [...] 0.6 <0.2-1.2 mg/dL A/G Ratio 1.4 1.1-2.5 Mammogram Reviewed date:07/19/2024 04:02:46 PM Interpretation:Negative, annual f/u Performing Lab: Notes/Report: Negative, annual f/u result Negative, annual f/u CBC Venipuncture (in house) Reviewed date:05/21/2024 10:53:24 [...] Interpretation:Normal Performing Lab: Notes/Report: Test performed by [facility], [address] , [address], [place] [address] Gwyn Stallworth MD, Infrastructure Engineer CLIA: [id number] Vitamin B12 7594 549-7471 pg/mL P-Comprehensive Metabolic Pa jane (CMP) Reviewed date:05/21/2024 10:53:24 AM Interpretation:Cr 1.08 Performing Lab: Notes/Report: Test performed by [facility] [address] [place] [address] , [address], [place] [address] Gwyn Stallworth MD, Infrastructure Engineer CLIA: [id number] Sodium 140 135-145 mmol/L Potassium 5.2 3.5-5.3 [...] Interpretation:27.3 Performing Lab: Notes/Report: Test performed by [facility] [address] [place] [address] , [address] , [place] [address] Gwyn Stallworth MD, Infrastructure Engineer CLIA: [id number] Vitamin D 25-Hydroxy 27.3 30.0-100.0 ng/mL Interpretation of Vitamin D 25 [place]: < 20 ng/mL - Deficiency 20 - 29 ng/mL - Insufficiency 30 - 100 ng/mL - Sufficiency > 100 ng/mL - Super-therapeutic- toxicity may occur above this level. Clinical correlation required. Medications Medication SIG (Take, Route, Frequency, Duration) Notes Start Date End Date Status Vitamin D3 50 MCG (1999 UT) 1 capsule Orally Once a day; Duration: 30 day(s) Active Albuterol Sulfate HFA 108 (90 Base) MCG/ACT 1 puff as needed Inhalation every 4 hrs 11/25/2023 Active QUEtiapine Fumarate 50 MG 1 tablet at be dtime Orally Once a day; Duration: 90 days Active Vitamin B-12 1000 MCG TAKE ONE TABLET BY MOUTH EVERY DAY; Duration: 120 Active Sertraline HCl 100 MG 1 1/2 orally once a day; Duration: 30 days Active CoQ10 200 MG as directed orally o nce a day; Duration: 90 days Not-Taking Rosuvastatin Calcium 10 MG 1 tab(s) orally At Bed Time; Duration: 90 days Active Gabapentin 600 MG 1 tab(s) orally 3 ti mes a day; Duration: 30 days 03/18/2025 Active KlonoPIN 1 MG 1/2 tab Orally 3 trevin es a day; Duration: 30 day(s) 01/19/2025 Active Bisoprolol Fumarate 5 MG 1 tab(s) orally once a day; Duration: 90 days Active Immunizations Vaccine Route Administration Date Status Comme nts COVID 19 Pfizer Unknown 12/28/2020 Administered COVID 19 Pfizer Unknown 01/20/2021 Administered Fluzone Quad (6months&older) IM Intramuscular 12/10/2019 Administered Fluzone Quad (6months&older) IM Intramuscular 08/30/2020 Administered Fluzone Quad (6months&older) IM Intramuscular 07/23/2021 Administered Tetanus Tdap-Adacel (over 7yrs) IM Intramuscular 06/25/2013 Administered Problems Problem Type SNOMED Code ICD Code Onset Dates Problem Status W/U Status Risk Notes Problem Vitamin B12 deficiency (570212485) Vitamin B12 deficiency (E53.8) Active confirmed Problem Mixed anxiety and depressive disorder (752202390) Depression with anxiety (F41.8) Active confirmed Problem Chronic pain (53653366) Other chronic pain (G89.29) Active confirmed Problem Cardiac pacemaker in situ (910361827) Status cardiac pacemaker (Z95.0) Active confirmed Problem Pulmonary emphysema (87844421) Pulmonary emphysema, unspecified emphysema type (J43.9) Active confirmed Problem Reactive depression (situational) (47892150) Situational depression (F43.21) Active confirmed Problem Renal insufficiency (062129155) Renal insufficiency (N28.9) Active confirmed Problem COPD - Chronic obstructive pulmonary disease (88937968) Chronic obstructive pulmonary disease, unspecified COPD type (J44.9) Active confirmed Problem Basal cell carcinoma of face (414253721) Basal cell carcinoma of face (C44.310) Active confirmed Problem Pure hypercholesterolemia (224382861) Pure hypercholesterolemia (E78.00) Active confirmed Problem History of right mastectomy (699189197) History of right mastectomy (Z90.11) Active confirmed Problem Personal history of primary malignant neoplasm of breast (382124168) History of cancer of right breast (Z85.3) Active confirmed Vital Signs Heart Rate 60 /min 03/10/2025 Blood pressure diastolic 60 mm Hg 03/10/2025 Height 66.75 in 03/10/2025 Blood pressure systolic 112 mm Hg 03/10/2025 Weight 157.6 lbs 03/10/2025 BMI 24.87 kg/m2 03/10/2025 Encounters Encounter Location Date Provider [facility] [address] [id number] 05/20/2024 J Ayden Omid Pulmonary emphysema, unspecified emphysema type J43.9 ; Status cardiac pacemaker Z95.0 ; Renal insufficiency N28.9 ; History of right mastectomy Z90.11 ; Depression with anxiety F41.8 ; Vitamin B12 deficiency E53.8 and Pure hypercholesterolemia E78.00 [facility] [address] [place] [address] [id number] 10/04/2024 J Ayden Omid Pulmonary emphysema, unspecified emphysema type J43.9 ; Renal insufficiency N28.9 ; History of cancer of right breast Z85.3 ; History of right mastectomy Z90.11 and Depression with anxiety F41.8 [facility] [address] [place] [id number] 03/10/2025 J Ayden Omid Pulmonary emphysema, unspecified emphysema type J43.9 ; Vitamin B12 deficiency E53.8 ; Renal insufficiency N28.9 ; Status cardiac pacemaker Z95.0 and Depression with anxiety F41.8 [facility] [address] [place], [place] [id number] 04/13/2024 J Ayden Omid [facility] [address] [place], [place] [id number] 04/19/2024 J Ayden Anne Depression with anxi ety F41.8 [facility] [address] [place], [place] [id number] 04/20/2024 J Ayden Anne Depression with anxi ety F41.8 [facility] [address] [place], [place] [id number] 05/21/2024 J Ayden Anne [facility] [address] [place], [place] [id number] 06/16/2024 J Ayden Anne Acute pain of left s houlder M25.512 [facility] [address] [place], [place] [id number] 07/02/2024 J Ayden Anne [facility] [address] [place], [place] [id number] 07/12/2024 Darinel [place] Other chronic pain G 89.29 [facility] [address] [place] [id number] 07/12/2024 J Ayden Anne [facility] [address] [place], [place] [id number] 07/26/2024 J Ayden Anne Depression with anxi ety F41.8 [facility] [address] [place] [id number] 08/25/2024 J Ayden Anne Other chronic pain G 89.29 [facility] [address] [place], [place] [id number] 10/06/2024 J Ayden Anne [facility] [address] [place] [id number] 10/25/2024 J Ayden Anne Depression with anxi ety F41.8 [facility] [address] [place], [place] [id number] 11/23/2024 J Ayden Anne Pure hypercholestero lemia E78.00 [facility] [address] [place], [place] [id number] 11/29/2024 J Ayden Anne Depression with anxi ety F41.8 and Other chronic pain G89.29 [facility] [address] [place], [place] [id number] 12/06/2024 J Ayden Anne [facility] [address] [place], [place] [id number] 01/17/2025 Evelio Anne Depression with anxi ety F41.8 [facility] [address] [place], [place] [id number] 02/24/2025 Evelio Anne Depression with anxi ety F41.8 [facility] [address] [place], [place] [id number] 03/18/2025 Evelio Anne Hyperkalemia E87.5 [facility] [address] [facility] [address] [place], [place] [id number] 03/18/2025 Evelio Anne Other chronic pain G 89.29 Assessments Encounter Date Diagnosis (ICD Code) Assessment Notes Treatment Notes Treatment Clinical Notes Section Notes 04/19/2024 Depression with anxi ety (ICD-10 - F41.8) 04/20/2024 Depression with anxi ety (ICD-10 - F41.8) 05/20/2024 Status cardiac pacem jailyn (ICD-10 - Z95.0) 05/20/2024 Pulmonary emphysema, unspecified emphysema type (ICD-10 - J43.9) 06/16/2024 Acute pain of left shoulder (ICD-10 - M25.512) 07/12/2024 Other chronic pain (ICD-10 - G89.29) 07/26/2024 Depression with anxi ety (ICD-10 - F41.8) 08/25/2024 Other chronic pain (ICD-10 - G89.29) 10/04/2024 Pulmonary emphysema, unspecified emphysema type (ICD-10 - J43.9) 10/04/2024 Renal insufficiency (ICD-10 - N28.9) 10/25/2024 Depression with anxi ety (ICD-10 - F41.8) 11/23/2024 Pure hypercholesterolemia (ICD-10 - E78.00) 11/29/2024 Depression with anxi ety (ICD-10 - F41.8) 01/17/2025 Depression with anxi ety (ICD-10 - F41.8) 02/24/2025 Depression with anxi ety (ICD-10 - F41.8) 03/10/2025 Pulmonary emphysema, unspecified emphysema type (ICD-10 - J43.9) 03/18/2025 Hyperkalemia (ICD-10 - E87.5) 03/18/2025 Other chronic pain (ICD-10 - G89.29) 03/10/2025 Vitamin B12 deficien cy (ICD-10 - E53.8) 11/29/2024 Other chronic pain (ICD-10 - G89.29) 10/04/2024 History of cancer of right breast (ICD-10 - Z85.3) 05/20/2024 Renal insufficiency (ICD-10 - N28.9) 05/20/2024 History of right mastectomy (ICD-10 - Z90.11) 10/04/2024 History of right mastectomy (ICD-10 - Z90.11) 03/10/2025 Renal insufficiency (ICD-10 - N28.9) 03/10/2025 Status cardiac pacem jailyn (ICD-10 - Z95.0) 10/04/2024 Depression with anxi ety (ICD-10 - F41.8) 05/20/2024 Depression with anxi ety (ICD-10 - F41.8) 05/20/2024 Vitamin B12 deficien cy (ICD-10 - E53.8) 03/10/2025 Depression with anxi ety (ICD-10 - F41.8) 05/20/2024 Pure hypercholesterolemia (ICD-10 - E78.00) Plan Of Treatment Pending Test Test Name Order Date X ray : Shoulder, left 06/16/2024 H-BMP 03/18/2025 Next Appt Details Provider Name:Evelio Hensley Nilam er, 07/25/2025 02:30:00 PM, [address] [facility] 36 [facility], [address], [place], [place], [id number], Insurance Providers Payer Name Payer Address Payer Phone Subscriber Number Group Number Insured Name Patient Relationship to Insured Coverage Start Date Coverage End Date [employer] [address] [place] [address] [phone] [id number] SHANDA LÓPEZ Self - patient is the insured Medications Administered Medication Instructions Date of Administration Dosage Notes B-12 02/19/2024 1 mL Medical (General) History Medical History History ICD Code R breast cancer 05/05/17 pulmonary functions, COPD, emphy sema, bronchodialator response 01/06/18 mammogram 12/28/20 -01/20/2021 Covid vaccine, Pfizer 09/27/22 Cologuard negative Surgical History Surgery Date(Month/Year) right knee repair tubal ligation partial hysterectomy mastectomy R 12/05/2008 heart cath 09/2014 pacemaker 09/29/2014 Moh's surgery left malar basal cell CA Pace maker lead wire replaced 09/2022 Hospitalization History Reason Date(Month/Year) [facility] for pacemaker 09/2014
[2025-03-19 12:55] LABS: Chloride 100 mmol/L (98-107); Potassium 4.6 mmoL/L (3.5-5.1); Sodium 140 mmol/L (136-145)
[2025-03-19 12:58] LABS: Anion Gap 15.6 mEq/L (5-15); Blood Urea Nitrogen 8 mg/dl (7-17); Carbon Dioxide 29 mmol/L (22.0-30.0); Estimated Glomerular Filt Rate 51 ml/min (>60); GFR (African American) 62 ML/MIN (>60)
[2025-03-19 12:59] LABS: Calcium 9.1 mg/dl (8.4-10.2); Glucose 126 mg/dl (74-100)
== END 2025-03-19 23:59 | disposition home or self-care (01) ==
LOC: LAB 10:51
PROVIDERS: PCP Family Medicine; Visit Provider Family Medicine
DX: E87.5 Hyperkalemia (principal)
CPT/HCPCS: 36415; 80048

== ENCOUNTER 2025-07-15 15:37 | Outpatient (CLI) | payer BC, SELFPAY ==
--- OUTSIDE RECORDS SUMMARY | 2024-02-19 10:30 | XMS_ITS ---
Author Organization [facility] Address [address] [facility] [address] [place] [id number] Care Team Providers Care Crisis Intervention Specialist Name Role Phone Evelio Anne Primary Care Provider Allergies Allergen (clinical drug ingredient) Drug/Non Drug Allergy documented on EMR Reaction Allergy Type Onset Date Status hydrocodone HYDROcodone Unknown Drug Allergy Act rc REASON FOR VISIT 3 months, Needs Tdap & shingles vaccine Medications Medication SIG (Take, Route, Frequency, Duration) Notes Start Date End Date Status KlonoPIN 1 MG 1/2 tab Orally 3 trevin es a day; Duration: 30 day(s) 02/12/2024 Active Vitamin B-12 1000 MCG TAKE ONE TABLET BY MOUTH EVERY DAY; Duration: 120 Not-Taking CoQ10 200 MG as directed orally o nce a day; Duration: 90 days Not-Taking Sertraline HCl 100 MG 1 1/2 orally once a day; Duration: 30 days Active Bisoprolol Fumarate 5 MG 1 tab(s) orally once a day; Duration: 90 days Active Gabapentin 600 MG 1 tab(s) orally 3 ti mes a day; Duration: 30 days 11/20/2023 Active Albuterol Sulfate HFA 108 (90 Base) MCG/ACT 1 puff as needed Inhalation every 4 hrs 11/25/2023 Active QUEtiapine Fumarate 50 MG 1 tablet at be dtime Orally Once a day; Duration: 90 days Active Rosuvastatin Calcium 10 MG 1 tab(s) orally At Bed Time; Duration: 90 days Active Vital Signs Blood pressure systolic 112 mm Hg 02/19/20 24 Blood pressure diastolic 70 mm Hg 024 Heart Rate 60 /min 02/19/2024 Height 66.75 in 02/19/2024 Weight 152.2 lbs 02/19/2024 BMI 24.01 kg/m2 02/19/2024 Encounters Encounter Location Date Provider Diagnosis [facility] [address] [place] [address] [address] [place], [place] [id number] 02/19/2024 Evelio Anne Situational depressi on F43.21 ; Status cardiac pacemaker Z95.0 ; History of cancer of right breast Z85.3 and Vitamin B12 deficiency E53.8 Assessments Encounter Date Diagnosis (ICD Code) Assessment Notes Treatment Notes Treatment Clinical Notes Section Notes 02/19/2024 Situational depression (ICD-10 - F43.21) 02/19/2024 Status cardiac pacemaker (ICD-10 - Z95.0) 02/19/2024 History of cancer of right breast (ICD-10 - Z85.3) 02/19/2024 Vitamin B12 deficiency (ICD-10 - E53.8) Plan Of Treatment Medication Medication Name Sig Start Date Stop Date Notes Sertraline HCl 100 MG 1 1/2 orally once a day; Duration: 30 days Next Appt Details Follow Up: 3 Months, Reason: Provider Name:Evelio Demarco er, 07/25/2025 02:30:00 PM, [address] [place] [address], [address], [place], [place], [id number], Medications Administered Medication Instructions Date of Administration Dosage Notes B-12 02/19/2024 1 mL Progress Notes * SHANDA MCGOVERN EILEENDOB:[birth year] (55 yo F)Acc No.[id number]:02/19/2024 Progress Notes Patient: SHANDA FRANCO Provider: Evelio Anne M.D. :1970 A ge:53 Y S ex:Female Date:02/19/2024 Address:[address] [place] [address], [id number] Subjective: * Chief Complaints: * 1 . 3 months. 2. Needs Tdap & shingles vaccine. * HPI: P sychology: The patient is here today for a check up on Depression with anxiety. Pt states she is doing good. Pt states she thinks the Sertraline is not working as well. * ROS: D ERMATOLOGY: no R rodri. n o H ana. G ASTROENTEROLOGY: no N ausea. n o V omiting. n o D iarrhea.? U ROLOGY: no D ifficulty urinating. n o B lood in urine. * Medical History: R breast cancer, 05/05/17 pulmonary functions, COPD, emphysema, bronchodialator response, 01/06/18 mammogram, 12/28/20 -01/20/2021 Covid vaccine, Pfizer, 09/27/22 Cologuard negative. * Surgical History: r ight knee repair , tubal ligation , partial hysterectomy , mastectomy R 12/05/2008, heart cath 09/2014, pacemaker 09/29/2014, Moh's surgery left malar basal cell CA 10/05/2019, Pace maker lead wire replaced 09/2022 . * Hospitalization/Major Diagno stic Procedure: H for pacemaker 09/2014. * Family History: F ather: . M other: alive. 3 brother(s) , 4 sister(s) . 1 son(s) , 1 daughter(s) . . * Social History: M arital Status: . * Medications: T aking Sertraline HCl 100 MG Tablet 1 tab(s) orally once a day , Taking QUEtiapine Fumarate 50 MG Tablet 1 tablet at bedtime Orally Once a day , Taking Rosuvastatin Calcium 10 MG Tablet 1 tab(s) orally At Bed Time , Taking Gabapentin 600 MG Tablet 1 tab(s) orally 3 times a day , Taking Albuterol Sulfate HFA 108 (90 Base) MCG/ACT Aerosol Solution 1 puff as needed Inhalation every 4 hrs , Taking Bisoprolol Fumarate 5 MG Tablet 1 tab(s) orally once a day , Taking KlonoPIN 1 MG Tablet 1/2 tab Orally 3 times a day , Not-Taking Vitamin B-12 1000 MCG Tablet TAKE ONE TABLET BY MOUTH EVERY DAY , Not-Taking CoQ10 200 MG Capsule as directed orally once a day , Medication List reviewed and reconciled with the patient * Allergies: H YDROcodone. Objective: * Vitals: W t:152.2, Temp:98.2, BP:112/70, HR:60, Nurse:CARSON, Ht: 66.75, BMI:24.01. * Examination: G eneral Examination: General Appearance: N AD. H EENT: u nremarkable.?Oral cavity: n o lesions, mucosa moist and WNL, no erythema. N sahara: s upple, no lymphadenopathy. C hest: n ormal shape and expansion, pacemaker battery in place. H eart: RSR. L ungs: c lear to auscultation. N eurologic Exam: I ntact, gait normal. S kin: s caling lesion of the left upper arm. P eripheral pulses: n ormal . E xtremities: n o leg edema. Assessment: * Assessment: 1. S ituational depression - F43.21 (Primary) 2 . S tatus cardiac pacemaker - Z95.0 3 . H istory of cancer of right breast - Z85.3 4 . V itamin B12 deficiency - E53.8 Plan: * Treatment: * Therapeutic Injections: B-12 : 1 mL (Route: Intramuscular) given by Alisha Martins on left gluteus (Vitamin B12 deficiency) * Procedure Codes: J 3420 B-12, 78875 ADMINISTRATION OF INJECTION * Follow Up: 3 Months * Images: Billing Information: * Visit Code: 62495 Office Visit, Est Pt., Level 4. * Procedure Codes: J3420 B-12. 83555 ADMINISTRATION OF INJECTION. * Electronic signature of Evelio Anne MD on 07/15/2025 at 03:39 PM EDT Sign off status: Pending * Provider: Evelio Anne M.D. Date: 0 02/19/2024 Generated for Eleno aquino/Meliton/eTjaysmitting on: 1 03:39 PM EDT History and Physical Notes * Examination Category Sub-Category Detail Notes Category Not es General Examination HEENT: unremarkable Heart: RSR Lungs: clear to auscultatio n Extremities: no leg edema General Appearance: NAD Skin: scaling lesion of th e left upper arm Neurologic Exam: Intact, gait normal Neck: supple, no lymphaden opathy Oral cavity: no lesions, mucosa m oist and WNL, no erythema Peripheral pulses: normal Chest: normal shape and exp ansion, pacemaker battery in place
--- OUTSIDE RECORDS SUMMARY | 2024-05-20 11:00 | XMS_ITS ---
Author Organization [facility] Address [address] [facility] [address] [place], [place] [id number] Care Team Providers Care Animal Care Attendant Name Role Phone Evelio Anne Primary Care Provider Allergies Allergen (clinical drug ingredient) Drug/Non Drug Allergy documented on EMR Reaction Allergy Type Onset Date Status hydrocodone HYDROcodone Unknown Drug Allergy Act rc Results Component Value Reference Range Notes CBC Venipuncture (in house) Reviewed date:05/21/2024 10:53:24 AM Interpretation: Performing Lab: Notes/Report: wbc 7.8 3.5 - 10 lymph 29.3% 15 - 50 mid 7.6% 2 - 15 gran 63.1% 35 - 80 rbc 4.25 3.5 - 5.5 hgb 12.8 11.5 - 16.5 hct 39.7 35 - 55 mcv 93.4 75 - 100 mch 30.1 25 - 35 mchc 32.2 31 - 38 platlet 323 100 - 400 P-Vitamin B12 Reviewed date:05/21/2024 10:53:24 AM Interpretation:Normal Performing Lab: Notes/Report: Test performed by [facility] [address] [place] [address] , [address], [place] [address] Gwyn Stallworth MD, Open Cut Examiner CLIA: [id number] Vitamin B12 3860 196-6543 pg/mL P-Comprehensive Metabolic Pa jane (CMP) Reviewed date:05/21/2024 10:53:24 AM Interpretation:Cr 1.08 Performing Lab: Notes/Report: Test performed by [facility] [address] [place] [address] , [address], [place] [address] Gwyn Stallworth MD, Open Cut Examiner CLIA: [id number] Sodium 140 135-145 mmol/L Potassium 5.2 3.5-5.3 mmol/L Chloride 98 97-108 mmol/L CO2 31 22-32 mmol/L Glucose 93 65-99 mg/dL BUN 6 6-20 mg/dL Creatinine 1.08 0.50-1.00 mg/dL Calcium 9.3 8.6-10.4 mg/dL eGFR by Creatinine 60 >59 mL/min/1.73m2 Protein 7.1 6.0-8.3 g/dL Albumin 4.2 3.5-5.3 g/dL Alkaline Phosphatase 99 35-121 IU/L ALT (SGPT) 12 <5-47 IU/L AST (SGOT) 18 <5-40 IU/L Bilirubin, Total 0.4 <0.2-1.2 mg/dL A/G Ratio 1.4 1.1-2.5 P-Vitamin D 25-Hydroxy Reviewed date:05/21/2024 10:53:24 AM Interpretation:27.3 Performing Lab: Notes/Report: Test performed by [facility] [address] [place] [address] , [address], [place] [address] Gwyn Stallworth MD, Open Cut Examiner CLIA: [id number] Vitamin D 25-Hydroxy 27.3 30.0-100.0 ng/mL Interpretation of Vitamin D 25 OH: < 20 ng/mL - Deficiency 20 - 29 ng/mL - Insufficiency 30 - 100 ng/mL - Sufficiency > 100 ng/mL - Super-therapeutic- toxicity may occur above this level. Clinical correlation required. REASON FOR VISIT 3 months, Needs Tdap & shingles vaccine Medications Medication SIG (Take, Route, Frequency, Duration) Notes Start Date End Date Status CoQ10 200 MG as directed orally o nce a day; Duration: 90 days Not-Taking Vitamin B-12 1000 MCG TAKE ONE TABLET BY MOUTH EVERY DAY; Duration: 120 Not-Taking KlonoPIN 1 MG 1/2 tab Orally 3 trevin es a day; Duration: 30 day(s) 04/21/2024 Active QUEtiapine Fumarate 50 MG 1 tablet at be dtime Orally Once a day; Duration: 90 days Active Gabapentin 600 MG 1 tab(s) orally 3 ti mes a day; Duration: 30 days 03/18/2024 Active Rosuvastatin Calcium 10 MG 1 tab(s) orally At Bed Time; Duration: 90 days Active Bisoprolol Fumarate 5 MG 1 tab(s) orally once a day; Duration: 90 days Active Albuterol Sulfate HFA 108 (90 Base) MCG/ACT 1 puff as needed Inhalation every 4 hrs 11/25/2023 Active Sertraline HCl 100 MG 1 1/2 orally once a day; Duration: 30 days Active Problems Problem Type SNOMED Code ICD Code Onset Dates Problem Status W/U Status Risk Notes Problem Vitamin B12 deficiency ([id number]) Vitamin B12 deficiency (E53.8) Active confirmed Vital Signs Blood pressure systolic 112 mm Hg 05/20/20 24 Blood pressure diastolic 70 mm Hg 024 Heart Rate 61 /min 05/20/2024 Height 66.75 in 05/20/2024 Weight 151.4 lbs 05/20/2024 BMI 23.89 kg/m2 05/20/2024 Encounters Encounter Location Date Provider [facility] [address] [phone] 05/20/2024 Evelio Anne Pulmonary emphysema, unspecified emphysema type J43.9 ; Status cardiac pacemaker Z95.0 ; Renal insufficiency N28.9 ; History of right mastectomy Z90.11 ; Depression with anxiety F41.8 ; Vitamin B12 deficiency E53.8 and Pure hypercholesterolemia E78.00 Assessments Encounter Date Diagnosis (ICD Code) Assessment Notes Treatment Notes Treatment Clinical Notes Section Notes 05/20/2024 Pulmonary emphysema, unspecified emphysema type (ICD-10 - J43.9) 05/20/2024 Status cardiac pacem jailyn (ICD-10 - Z95.0) 05/20/2024 Renal insufficiency (ICD-10 - N28.9) 05/20/2024 History of right mastectomy (ICD-10 - Z90.11) 05/20/2024 Depression with anxi ety (ICD-10 - F41.8) 05/20/2024 Vitamin B12 deficien cy (ICD-10 - E53.8) 05/20/2024 Pure hypercholesterolemia (ICD-10 - E78.00) Plan Of Treatment Medication Medication Name Sig Start Date Stop Date Notes Rosuvastatin Calcium 10 MG 1 tab(s) oral ly At Bed Time; Duration: 90 days Sertraline HCl 100 MG 1 1/2 orally once a day; Duration: 30 days Next Appt Details Follow Up: 4 Months, Reason: Provider Name:Evelio Demarco er, 07/25/2025 02:30:00 PM, [address] [facility] [address], [address], [place], [place], [phone], Progress Notes * SHANDA MCGOVERNDOB:[birth year] (55 yo F)Acc No.[id number]:05/20/2024 Progress Notes Patient: SHANDA FRANCO Provider: Evelio Anne M.D. :1970 A ge:54 Y S ex:Female Date:05/20/2024 Address:[address] [place] [address], [place], [id number] Subjective: * Chief Complaints: * 1 . 3 months. 2. Needs Tdap & shingles vaccine. * HPI: P sychology: The patient is here for a check up on Depression with anxiety. Pt states she is doing good except she has had several falls over the past 2 weeks and is having some pain in her hips and low back. Pt states she is needing refills sent to [facility] in [facility]. * ROS: D ERMATOLOGY: no R rodri. [...] arital Status: . * Medications: T aking Rosuvastatin Calcium 10 MG Tablet 1 tab(s) orally At Bed Time , Taking Albuterol Sulfate HFA 108 (90 Base) MCG/ACT Aerosol Solution 1 puff as needed Inhalation every 4 hrs , Taking Bisoprolol Fumarate 5 MG Tablet 1 tab(s) orally once a day , Taking Sertraline HCl 100 MG Tablet 1 1/2 orally once a day , Taking Gabapentin 600 MG Tablet 1 tab(s) orally 3 times a day , Taking QUEtiapine Fumarate 50 MG Tablet 1 tablet at bedtime Orally Once a day , Taking KlonoPIN 1 MG Tablet 1/2 tab Orally 3 times a day , Not-Taking Vitamin B-12 1000 MCG Tablet TAKE ONE TABLET BY MOUTH EVERY DAY , Not-Taking CoQ10 200 MG Capsule as directed orally once a day , Medication List reviewed and reconciled with the patient * Allergies: H YDROcodone. Objective: * Vitals: W t:151.4, Temp:98.1, BP:112/70, HR:61, Nurse:CARSON, Ht: 66.75, BMI:23.89. * Examination: G eneral Examination: General Appearance: [...] o leg edema. Assessment: * Assessment: 1. P ulmonary emphysema, unspecified emphysema type - J43.9 (Primary) 2 . S tatus cardiac pacemaker - Z95.0 3 . R enal insufficiency - N28.9 ?4. H istory of right mastectomy - Z90.11 5 . D epression with anxiety - F41.8 6 . V itamin B12 deficiency - E53.8 7 . P ure hypercholesterolemia - E78.00 Plan: * Treatment: Value Reference Range w bc 7.8 3.5 - 10 * l ymph 29.3% 15 - 50 * m id 7.6% 2 - 15 * g ran 63.1% 35 - 80 * r bc 4.25 3.5 - 5.5 * h gb 12.8 11.5 - 16.5 * h ct 39.7 35 - 55 * m cv 93.4 75 - 100 * m ch 30.1 25 - 35 * m chc 32.2 31 - 38 * p latlet 323 100 - 400 * Alisha Martins 05/20/2024 4:5 4:10 PM > Amy [place] 05/21/2024 10:53:04 AM >See phone encounter 2.?Renal insufficiency?LAB: P-Comprehensive Metabolic Panel (CMP) (Collection Date & Time - 05/20/2024 03:00 PM)?Cr 1.08* Value Reference Range A /G Ratio 1.4 1.1-2.5 - * A lbumin 4.2 3.5-5.3 - g/dL * A lkaline Phosphatase 99 35-121 - IU/L * A LT (SGPT) 12 <5-47 - IU/L * A ST (SGOT) 18 <5-40 - IU/L * B ilirubin, Total 0.4 <0.2-1.2 - mg/dL * B UN 6 6-20 - mg/dL * C alcium 9.3 8.6-10.4 - mg/dL * C hloride 98 97-108 - mmol/L * C O2 31 22-32 - mmol/L * C reatinine 1.08 H 0.50-1.00 - mg/dL * G lucose 93 65-99 - mg/dL * P otassium 5.2 3.5-5.3 - mmol/L * S odium 140 135-145 - mmol/L * P rotein 7.1 6.0-8.3 - g/dL * e GFR by Creatinine 60 >59 - mL/min/1.73m2 * Amy [place] 05/21/2024 10:53 :04 AM >See phone encounter ?LAB: P-Vitamin D 25-Hydroxy (Collection Date & Time - 05/20/2024 03:00 PM)? 27.3* Value Reference Range V itamin D 25-Hydroxy 27.3 L 30.0-100.0 - ng/mL * Amy Hob[place] 05/21/2024 10:53 :04 AM >See phone encounter 3.?Depression with anxiety? Refill Sertraline HCl Tablet, 100 MG, 1 1/2, orally, once a day, 30 days, 45, Refills 4.??4.?Vitamin B12 deficiency?LAB: P-Vitamin B12 (Collection Date & Time - 05/20/2024 03:00 PM)?Normal* Value Reference Range V itamin B12 3644 099-1680 - pg/mL * Amy Hobbs 05/21/2024 10:53 :04 AM >See phone encounter 5.?Pure hypercholesterolemia? Refill Rosuvastatin Calcium Tablet, 10 MG, 1 tab(s), orally, At Bed Time, 90 days, 90, Refills 1. ? * Procedure Codes: 8 5025 CBC WITH AUTO DIFF, 33915 VENIPUNCT, ROUTINE* * Follow Up: 4 Months * Images: Billing Information: * Visit Code: 26983 Office Visit, Est Pt., Level 4. * Procedure Codes: 71599 CBC WITH AUTO DIFF. 26552 VENIPUNCT, ROUTINE*. * Electronic signature of Evelio Anne MD on 07/15/2025 at 03:40 PM EDT Sign off status: Pending * Provider: Evelio Anne M.D. Date: 0 05/20/2024 Generated for Jefi miles/Fapedrog/eTransmitting on: 1 03:40 PM EDT History and Physical Notes * [...]
--- OUTSIDE RECORDS SUMMARY | 2024-10-04 11:15 | XMS_ITS ---
[facility] Organization [facility] Address [address] [facility] [address] [place] [id number] Care Team Providers Care Truck Striker Name Role Phone Evelio Anne Primary Care Provider Allergies Allergen (clinical drug ingredient) Drug/Non Drug Allergy documented on EMR Reaction Allergy Type Onset Date Status hydrocodone HYDROcodone Unknown Drug Allergy Act rc Results Component Value Reference Range Notes P-Basic Metabolic Panel (BMP ) Reviewed date:10/06/2024 08:29:30 AM Interpretation:Cr 1.14, gfr 56 Performing Lab: Notes/Report: CLIA: [id number] Gwyn Stallworth MD, Datastage Consultant [address] [place] [address] , [address], [place] [address] Test performed by [facility], [facility] Sodium 138 135-145 mmol/L Potassium 4.6 3.5-5.3 [...] 10/04/2024 Encounters Encounter Location Date Provider [facility] [address] [facility] [address] [phone] 10/04/2024 Evelio Anne Pulmonary emphysema, unspecified emphysema [...] Name:Evelio Demarco er, 07/25/2025 02:30:00 PM, [address] [facility] [address], [address], [place], [phone], Progress Notes * SHANDA MCGOVERNDOB:[birth year] (55 yo F)Acc No.[id number]:10/04/2024 Progress Notes Patient: SHANDA FRANCO Provider: Evelio Anne M.D. :1970 A ge:54 Y S ex:Female Date:10/04/2024 Address:[address] [place] [address], [id number] Subjective: * Chief Complaints: * 1 . 4 months. 2. Needs Tdap & shingles vaccine. * HPI: P sychology: The patient is here today for a check up on Depression with anxiety. Pt states she is needing a refill Seroquel sent to [facility] in [facility]. Pt states she is still having pain [...] * Images: Billing Information: * Visit Code: [id number] Office Visit, Est Pt., Level 4. * Procedure Codes: * Electronic signature of Evelio Anne MD on 07/15/2025 at 03:39 PM EDT Sign off status: Pending * Provider: Evelio Anne M.D. Date: 0 10/04/2024 Generated for Eleno aquino/Meliton/eTransmitting on: 03:39 PM EDT History and Physical Notes [...]
--- OUTSIDE RECORDS SUMMARY | 2025-03-10 10:30 | XMS_ITS ---
Author Organization [facility] Address [address] [facility] [address] [place], [place] [phone] Care Team Providers Care Neurological Physiotherapist Name Role Phone Evelio Anne Primary Care Provider [phone] Allergies Allergen (clinical drug ingredient) Drug/Non Drug Allergy documented on EMR Reaction Allergy Type Onset Date Status hydrocodone HYDROcodone Unknown Drug Allergy Act rc Results Component Value Reference Range Notes P-Comprehensive Metabolic Pa jane (CMP) Reviewed date:03/18/2025 12:41:46 PM Interpretation:K+ 5.5, Cr 1.28, gfr 49 Performing Lab: Notes/Report: Test performed by [facility] [address] [place] [address] , [address], [place] [address] Gwyn Stallworth MD, Psychological Aide CLIA: [id number] Sodium 136 135-145 mmol/L Potassium 5.5 3.5-5.3 mmol/L Chloride 99 97-108 mmol/L CO2 29 22-32 mmol/L Glucose 91 65-99 mg/dL BUN 6 6-20 mg/dL Creatinine 1.28 0.50-1.00 mg/dL Calcium 9.3 8.6-10.4 mg/dL eGFR by Creatinine 49 >59 mL/min/1.73m2 Protein 7.3 6.0-8.3 g/dL Albumin 4.3 3.5-5.3 g/dL Alkaline Phosphatase 91 35-121 IU/L ALT (SGPT) 11 <5-47 IU/L AST (SGOT) 16 <5-40 IU/L Bilirubin, Total 0.6 <0.2-1.2 mg/dL A/G Ratio 1.4 1.1-2.5 REASON FOR VISIT check up, Needs labs, Tdap, & shingles vaccine Medications Medication SIG (Take, Route, Frequency, Duration) Notes Start Date End Date Status Albuterol Sulfate HFA 108 (90 Base) MCG/ACT 1 puff as needed Inhalation every 4 hrs 11/25/2023 Active Sertraline HCl 100 MG 1 1/2 orally once a day; Duration: 30 days Active CoQ10 200 MG as directed orally o nce a day; Duration: 90 days Not-Taking KlonoPIN 1 MG 1/2 tab Orally 3 trevin es a day; Duration: 30 day(s) 01/19/2025 Active Bisoprolol Fumarate 5 MG 1 tab(s) orally once a day; Duration: 90 days Active Vitamin D3 50 MCG (2000 UT) 1 capsule Orally Once a day; Duration: 30 day(s) Active QUEtiapine Fumarate 50 MG 1 tablet at be dtime Orally Once a day; Duration: 90 days Active Vitamin B-12 1000 MCG TAKE ONE TABLET BY MOUTH EVERY DAY; Duration: 120 Active Gabapentin 600 MG 1 tab(s) orally 3 ti mes a day; Duration: 30 days 11/29/2024 Active Rosuvastatin Calcium 10 MG 1 tab(s) orally At Bed Time; Duration: 90 days Active Vital Signs Blood pressure systolic 112 mm Hg 03/10/20 25 Blood pressure diastolic 60 mm Hg 025 Heart Rate 60 /min 03/10/2025 Height 66.75 in 03/10/2025 Weight 157.6 lbs 03/10/2025 BMI 24.87 kg/m2 03/10/2025 Encounters Encounter Location Date Provider Diagnosis [facility] [address] [facility] [address] [place], [place] [id number] 03/10/2025 Evelio Anne Pulmonary emphysema, unspecified emphysema type J43.9 ; Vitamin B12 deficiency E53.8 ; Renal insufficiency N28.9 ; Status cardiac pacemaker Z95.0 ; Depression with anxiety F41.8 and BMI 24.0-24.9, adult Z68.24 Assessments Encounter Date Diagnosis (ICD Code) Assessment Notes Treatment Notes Treatment Clinical Notes Section Notes 03/10/2025 Pulmonary emphysema, unspecified emphysema type (ICD-10 - J43.9) 03/10/2025 Vitamin B12 deficiency (ICD-10 - E53.8) 03/10/2025 Renal insufficiency (ICD-10 - N28.9) 03/10/2025 Status cardiac pacemaker (ICD-10 - Z95.0) 03/10/2025 Depression with anxiety (ICD-10 - F41.8) 03/10/2025 BMI 24.0-24.9, adult (ICD-10 - Z68.24) Plan Of Treatment Medication Medication Name Sig Start Date Stop Date Notes Albuterol Sulfate HFA 108 (9 0 Base) MCG/ACT 1 puff as needed Inhalation every 4 hrs 11/25/2023 Next Appt Details Follow Up: 4 Months, Reason: Provider Name:Evelio Demarco er, 07/25/2025 02:30:00 PM, [address] [facility] [address], [address], [place], [place], [phone], Progress Notes * SHANDA MCGOVERNDOB:[birth year] (55 yo F)Acc No.[id number]:03/10/2025 Progress Notes Patient: SHANDA FRANCO Provider: Evelio Anne M.D. :1970 A ge:54 Y S ex:Female Date:03/10/2025 Address:[address] [place] [address], [place], [id number] Subjective: * Chief Complaints: * 1 . Check up. 2. Needs labs, Tdap, & shingles vaccine. * HPI: P sychology: The pt is here for a check up on Depression with anxiety. Pt states she is having a lot of stress. Pt is not fasting. * ROS: D [...] CA 10/05/2019, Pace maker lead wire replaced 09/2022. * Hospitalization/Major Diagno stic Procedure: H for pacemaker 09/2014. * Family History: F ather: . M other: alive. 3 brother(s) , 4 sister(s) . 1 son(s) , 1 daughter(s) . . * Social History: M arital Status: . * Medications: T aking Vitamin D3 50 MCG (2000 UT) Capsule 1 capsule Orally Once a day , Taking Albuterol Sulfate HFA 108 (90 Base) MCG/ACT Aerosol Solution 1 puff as needed Inhalation every 4 hrs , Taking Vitamin B-12 1000 MCG Tablet TAKE ONE TABLET BY MOUTH EVERY DAY , Taking QUEtiapine Fumarate 50 MG Tablet 1 tablet at bedtime Orally Once a day , Taking Rosuvastatin Calcium 10 MG Tablet 1 tab(s) orally At Bed Time , Taking Gabapentin 600 MG Tablet 1 tab(s) orally 3 times a day , Taking Bisoprolol Fumarate 5 MG Tablet 1 tab(s) orally once a day , Taking KlonoPIN 1 MG Tablet 1/2 tab Orally 3 times a day , Taking Sertraline HCl 100 MG Tablet 1 1/2 orally once a day , Not-Taking CoQ10 200 MG Capsule as directed orally once a day , Medication List reviewed and reconciled with the patient * Allergies: H YDROcodone. Objective: * Vitals: W t: 157.6, Temp: 98.4, BP: 112/60, HR: 60, O2 Sat: 100% on RA, Nurse: CARSON, Ht: 66.75, BMI:24.87. * Examination: G eneral Examination: General Appearance: N AD. H EENT: u nremarkable.?Oral cavity: n o lesions, mucosa moist and WNL, no erythema. N sahara: s upple, no lymphadenopathy. C hest: n ormal shape and expansion, pacemaker battery in place. H eart: RSR. L ungs: c lear to auscultation, better than usual. N eurologic Exam: I ntact, gait normal. S kin: n ormal, no rash. P eripheral pulses: n ormal . E xtremities: n o leg edema. Assessment: * Assessment: 1. P ulmonary emphysema, unspecified emphysema type - J43.9 (Primary) 2 . V itamin B12 deficiency - E53.8 3 . R enal insufficiency - N28.9 4 . S tatus cardiac pacemaker - Z95.0 5 . D epression with anxiety - F41.8 6. B TN 24.0-24.9, adult - Z68.24 Plan: * Treatment: 2. R enal insufficiency L AB: P-Comprehensive Metabolic Panel (CMP) (Collection Date & Time - 03/11/2025 08:38 AM) K + 5.5, Cr 1.28, gfr 49 Value Reference Range A /G Ratio 1.4 1.1-2.5 - * A lbumin 4.3 3.5-5.3 - g/dL * A lkaline Phosphatase 91 35-121 - IU/L * A LT (SGPT) 11 <5-47 - IU/L * A ST (SGOT) 16 <5-40 - IU/L * B ilirubin, Total 0.6 <0.2-1.2 - mg/dL * B UN 6 6-20 - mg/dL * C alcium 9.3 8.6-10.4 - mg/dL * C hloride 99 97-108 - mmol/L * C O2 29 22-32 - mmol/L * C reatinine 1.28 H 0.50-1.00 - mg/dL * G lucose 91 65-99 - mg/dL * P otassium 5.5 H 3.5-5.3 - mmol/L * S odium 136 135-145 - mmol/L * P rotein 7.3 6.0-8.3 - g/dL * e GFR by Creatinine 49 L >59 - mL/min/1.73m2 * Amy Hobbs 03/18/2025 12:4 1:39 PM EDT > See phone encounter * Procedure Codes: G 8420 BMI<30 AND >=22 CALC & DOCU, G8783 BP SCR PRFRM RCMDD DEFIND SCR INTVL, G8752 MOST RECENT SYSTOLIC BP < 140MM HG, G8754 MOST RECENT DIASTOLIC BP < 90MM HG * Follow Up: 4 Months * Images: Billing Information: * Visit Code: 39386 Office Visit, Est Pt., Level 4. * Procedure Codes: G8420 BMI<30 AND >=22 CALC & DOCU. G8783 BP SCR PRFRM RCMDD DEFIND SCR INTVL. G8752 MOST RECENT SYSTOLIC BP < 140MM HG. G8754 MOST RECENT DIASTOLIC BP < 90MM HG. * Electronic signature of Evelio Anne MD on 07/15/2025 at 03:39 PM EDT Sign off status: Pending * Provider: Evelio Anne M.D. Date: 0 03/10/2025 Generated for Eleno aquino/eMliton/Yarelissmitting on: 1 03:39 PM EDT History and Physical Notes * Examination Category Sub-Category Detail Notes Category Not es General Examination HEENT: unremarkable Heart: RSR Lungs: clear to auscultatio n, better than usual Extremities: no leg edema General Appearance: NAD Skin: normal, no rash Neurologic Exam: Intact, gait normal Neck: supple, no lymphaden opathy Oral cavity: no lesions, mucosa m oist and WNL, no erythema Peripheral pulses: normal Chest: normal shape and exp ansion, pacemaker battery in place
--- OUTSIDE RECORDS SUMMARY | 2025-07-01 09:06 | XMS_ITS ---
Author Organization [facility] Address [address]10 [facility] 36 [facility] [address] [place] [id number] Care Team Providers Care Panel Maker Name Role Phone Evelio Anne Primary Care Provider REASON FOR VISIT needs order sent Encounters Encounter Location Date Provider Diagnosis [facility] [facility] [address] [place] [id number] 07/01/2025 Evelio Anne Plan Of Treatment Next Appt Details Provider Name:Evelio Demarco er, 07/25/2025 02:30:00 PM, [facility] [facility], [address], [place], [place], [phone], Progress Notes * SHANDA MCGOVERNDOB:[birth year] (55 yo F)Acc No.[id number]:07/01/2025 Patient: SHANDA FRANCO :1970 A ge:55 Y S ex:Female Address:[address] [place], [place] [address] [phone] Subjective: * Chief Complaints: * N eeds order sent * Medical History: * Surgical History: * Hospitalization/Major Diagno stic Procedure: * Medications: Objective: * Vitals: * Physical Examination: Assessment: Plan: * Treatment: * Procedure Codes: * true * Date: Generated for Printi ng/Faxing/eTransmitting on: 03:39 PM EDT
--- OUTSIDE RECORDS SUMMARY | 2025-07-15 15:39 | XMS_ITS | Patient Health Record ---
Author Organization [facility] Address [address] [facility] [address] [place] [id number] Care Team Providers Care Fabricator Foam Rubber Name Role Phone Evelio Anne Primary Care Provider Allergies Allergen (clinical drug ingredient) Drug/Non Drug Allergy documented on EMR Reaction Allergy Type Onset Date Status hydrocodone HYDROcodone Unknown Drug Allergy Act rc Results Component Value Reference Range Notes P-Basic Metabolic Panel (BMP ) Reviewed date:10/06/2024 08:29:30 AM Interpretation:Cr 1.14, gfr 56 Performing Lab: Notes/Report: Test performed by [facility] [address] , [place] [address] Gwyn Stallworth MD, Cabin Service Agent CLIA: [id number] Sodium 138 135-145 mmol/L Potassium 4.6 3.5-5.3 mmol/L Chloride 98 97-108 mmol/L CO2 32 22-32 mmol/L Glucose 88 65-99 mg/dL BUN 8 6-20 mg/dL Creatinine 1.14 0.50-1.00 mg/dL Calcium 9.4 8.6-10.4 mg/dL eGFR by Creatinine 56 >59 mL/min/1.73m2 P-Comprehensive Metabolic Pa jane (CMP) Reviewed date:03/18/2025 12:41:46 PM Interpretation:K+ 5.5, Cr 1.28, gfr 49 Performing Lab: Notes/Report: CLIA: [id number] Gwyn Stallworth MD, Cabin Service Agent [address] [place] [address] [place] [address] Test performed by [facility] Sodium 136 135-145 mmol/L Potassium 5.5 3.5-5.3 [...] 0.6 <0.2-1.2 mg/dL A/G Ratio 1.4 1.1-2.5 H-BMP Reviewed date:04/22/2025 10:39:27 AM Interpretation:gluc 126, Cr 1.1, gfr 51, GAP 15.6 Performing Lab: Notes/Report: NA 140 136-145 mmol/L K 4.6 3.5-5.1 mmoL/L CL 100 98-107 mmol/L CO2 29 22.0-30.0 mmol/L GAP 15.6 5-15 mEq/L BUN 8 7-17 mg/dl CREATT 1.10 0.52-1.04 mg/dl GFRAA 62 >60 ML/MIN EGFR 51 >60 ml/min GLU 126 74-100 mg/dl CA 9.1 8.4-10.2 mg/dl Medications Medication SIG (Take, Route, Frequency, Duration) Notes Start Date End Date Status Vitamin D3 50 MCG (1999) 1 capsule Orally Once a day; Duration: 30 day(s) Active Albuterol Sulfate HFA 108 (90 Base) MCG/ACT 1 puff as needed Inhalation every 4 hrs 11/25/2023 Active QUEtiapine Fumarate 50 MG 1 tablet at be dtime Orally Once a day; Duration: 90 days Active Sertraline HCl 100 MG 1 1/2 orally once a day; Duration: 30 days Active Vitamin B-12 1000 MCG TAKE ONE TABLET BY MOUTH EVERY DAY; Duration: 120 Active KlonoPIN 1 MG 1/2 tab Orally 3 trevin es a day; Duration: 30 day(s) 04/22/2025 Active CoQ10 200 MG as directed orally o nce a day; Duration: 90 days Not-Taking Rosuvastatin Calcium 10 MG 1 tab(s) orally At Bed Time; Duration: 90 days Active Gabapentin 600 MG 1 tab(s) orally 3 ti mes a day; Duration: 30 days 03/18/2025 Active Bisoprolol Fumarate 5 MG 1 tab(s) orally once a day; Duration: 90 days Active Immunizations Vaccine Route Administration Date Status Comme nts Tetanus Tdap-Adacel (over 7yrs) IM Intramuscular 06/25/2013 Administered Fluzone Quad (6months&older) IM Intramuscular 12/10/2019 Administered Fluzone Quad (6months&older) IM Intramuscular 08/30/2020 Administered Fluzone Quad (6months&older) IM Intramuscular 07/23/2021 Administered COVID 19 Pfizer Unknown 12/28/2020 Administered COVID 19 Pfizer Unknown 01/20/2021 Administered Problems Problem Type SNOMED Code ICD Code Onset Dates Problem Status W/U Status Risk Notes Problem Vitamin B12 deficiency (254177000) Vitamin B12 deficiency (E53.8) Active confirmed Problem Mixed anxiety and depressive disorder (271116544) Depression with anxiety (F41.8) Active confirmed Problem Chronic pain (18785923) Other chronic pain (G89.29) Active confirmed Problem Cardiac pacemaker in situ (040092252) Status cardiac pacemaker (Z95.0) Active confirmed Problem Pulmonary emphysema (11346103) Pulmonary emphysema, unspecified emphysema type (J43.9) Active confirmed Problem Reactive depression (situational) (87251998) Situational depression (F43.21) Active confirmed Problem Renal insufficiency (849751367) Renal insufficiency (N28.9) Active confirmed Problem COPD - Chronic obstructive pulmonary disease (16257047) Chronic obstructive pulmonary disease, unspecified COPD type (J44.9) Active confirmed Problem Basal cell carcinoma of face (980725063) Basal cell carcinoma of face (C44.310) Active confirmed Problem Pure hypercholesterolemia (846113822) Pure hypercholesterolemia (E78.00) Active confirmed Problem History of right mastectomy (401793273) History of right mastectomy (Z90.11) Active confirmed Problem Personal history of primary malignant neoplasm of breast (641569830) History of cancer of right breast (Z85.3) Active confirmed Vital Signs Heart Rate 60 /min 03/10/2025 Blood pressure diastolic 60 mm Hg 03/10/2025 Height 66.75 in 03/10/2025 Blood pressure systolic 112 mm Hg 03/10/2025 Weight 157.6 lbs 03/10/2025 BMI 24.87 kg/m2 03/10/2025 Encounters Encounter Location Date Provider [facility] [address] [place] [id number] 10/04/2024 J Ayden Anne Pulmonary emphysema, unspecified emphysema type J43.9 ; Renal insufficiency N28.9 ; History of cancer of right breast Z85.3 ; History of right mastectomy Z90.11 and Depression with anxiety F41.8 [facility] [address] [facility] [address] [place] [id number] 03/10/2025 J Ayden Anne Pulmonary emphysema, unspecified emphysema type J43.9 ; Vitamin B12 deficiency E53.8 ; Renal insufficiency N28.9 ; Status cardiac pacemaker Z95.0 ; Depression with anxiety F41.8 and BMI 24.0-24.9, adult Z68.24 [facility] [address] [facility] [address] [place] [id number] 07/26/2024 J Ayden Anne Depression with anxi ety F41.8 [facility] [address] [facility] [address] [place] [id number] 08/25/2024 Evelio Anne Other chronic pain G 89.29 [facility] [address] [facility] [address] [place], [place] [id number] 10/06/2024 Evelio Anne [facility] [address] [facility] [address] [place], [place] [id number] 10/25/2024 J Ayden Anne Depression with anxi ety F41.8 [facility] [address] [facility] [address] [place], [place] [id number] 11/23/2024 Evelio Anne Pure hypercholestero lemia E78.00 [facility] [address] [facility] [address] [place] [id number] 11/29/2024 J Ayden Anne Depression with anxi ety F41.8 and Other chronic pain G89.29 [facility] [address] [place], [place] [id number] 12/06/2024 J Ayden Omid [facility] [address] [place], [place] [id number] 01/17/2025 J Ayden Anen Depression with anxi ety F41.8 [facility] [address] [place], [place] [id number] 02/24/2025 J Ayden Anne Depression with anxi ety F41.8 [facility] [address] [place], [place] [id number] 03/18/2025 J Ayden Anne Hyperkalemia E87.5 [facility] [address] [place], [place] [id number] 03/18/2025 J Ayden Anne Other chronic pain G 89.29 [facility] [address] [place], [place] [id number] 03/21/2025 J Ayden Omid [facility] [address] [place], [place] [id number] 03/22/2025 J Ayden Anne Depression with anxi ety F41.8 [facility] [address] [place], [place] [id number] 04/22/2025 J Ayden Omid [facility] [address] [place], [place] [id number] 04/22/2025 J Ayden Anne Depression with anxi ety F41.8 [facility] [address] [place], [place] [id number] 05/20/2025 J Ayden Anne Pure hypercholestero lemia E78.00 [facility] [address] [place], [place] [id number] 07/01/2025 Evelio Anne Assessments Encounter Date Diagnosis (ICD Code) Assessment Notes Treatment Notes Treatment Clinical Notes Section Notes 07/26/2024 Depression with anxi ety (ICD-10 - F41.8) 08/25/2024 Other chronic pain (ICD-10 - G89.29) 10/04/2024 Pulmonary emphysema, unspecified emphysema type (ICD-10 - J43.9) 10/04/2024 Renal insufficiency (ICD-10 - N28.9) 10/25/2024 Depression with anxi ety (ICD-10 - F41.8) 11/23/2024 Pure hypercholesterolemia (ICD-10 - E78.00) 01/17/2025 Depression with anxi ety (ICD-10 - F41.8) 02/24/2025 Depression with anxi ety (ICD-10 - F41.8) 03/18/2025 Hyperkalemia (ICD-10 - E87.5) 03/18/2025 Other chronic pain (ICD-10 - G89.29) 03/22/2025 Depression with anxi ety (ICD-10 - F41.8) 04/22/2025 Depression with anxi ety (ICD-10 - F41.8) 05/20/2025 Pure hypercholesterolemia (ICD-10 - E78.00) 03/10/2025 Vitamin B12 deficien cy (ICD-10 - E53.8) 03/10/2025 Pulmonary emphysema, unspecified emphysema type (ICD-10 - J43.9) 11/29/2024 Depression with anxi ety (ICD-10 - F41.8) 11/29/2024 Other chronic pain (ICD-10 - G89.29) 03/10/2025 Renal insufficiency (ICD-10 - N28.9) 10/04/2024 History of cancer of right breast (ICD-10 - Z85.3) 10/04/2024 History of right mastectomy (ICD-10 - Z90.11) 03/10/2025 Status cardiac pacem jailyn (ICD-10 - Z95.0) 03/10/2025 Depression with anxi ety (ICD-10 - F41.8) 10/04/2024 Depression with anxi ety (ICD-10 - F41.8) 03/10/2025 BMI 24.0-24.9, adult (ICD-10 - Z68.24) Plan Of Treatment Pending Test Test Name Order Date X ray : Shoulder, left 06/16/2024 Mammogram 07/01/2025 Next Appt Details Provider Name:Evelio Demarco er, 07/25/2025 02:30:00 PM, [address], [place], [id number], Insurance Providers Payer Name Payer Address Payer Phone Subscriber Number Group Number Insured Name Patient Relationship to Insured Coverage Start Date Coverage End Date [facility] [employer] [employer] [address] [place] [address] [phone] [id number] SHANDA HAM Self - patient is the insured Medications [...] wire replaced 09/2022 Hospitalization History Reason Date(Month/Year) [facility] for pacemaker 09/2014
--- NOTE | 2025-07-15 15:42 | MM_ITS ---
PROCEDURE INFORMATION: Exam: MG Left Screening 3D Mammography Exam date and time: 07/15/2025 3:44 PM Age: 55 years old Clinical indication: Screening examination; Personal history of right breast cancer; Mastectomy TECHNIQUE: Imaging protocol: Left Screening tomosynthesis and 2D mammography including computer-aided detection (CAD) when performed. COMPARISON: 1. MG MM DIG SC MAMM UNILAT LT CAD 07/14/2024 8:21 AM 2. MG MM DIG SCREENING MAMM BI W/CAD 07/15/2023 1:58 PM FINDINGS: MAMMOGRAPHY: Breast composition: There are scattered areas of fibroglandular density. Mass: None. Architectural distortion: None. Calcifications: No suspicious calcifications. Asymmetric density: None. Skin thickening: None. Axillary adenopathy: None. Other findings: The patient is status post right mastectomy IMPRESSION: 1. No mammographic evidence of malignancy. Annual screening is recommended unless otherwise clinically indicated. 2. In women diagnosed with breast cancer before age 50 or with personal histories of breast cancer and dense breasts, the [employer] recommends annual supplemental MRI in addition to yearly mammography. Alternative supplemental studies may include breast sonography or contrast enhanced mammography. Please be aware that your insurance company will determine whether they will cover the cost of such screening, despite the recommendation of your doctors and the [employer]. It is your responsibility to determine your insurance benefits. ASSESSMENT: BI-RADS Category 1: Negative.
== END 2025-07-15 23:59 | disposition home or self-care (01) ==
LOC: RAD 15:37
PROVIDERS: PCP Family Medicine; Visit Provider Family Medicine
DX: Z12.31 Encounter for screening mammogram for malignant neoplasm of breast (principal); R92.322 Mammographic fibroglandular density, left breast; Z85.3 Personal history of malignant neoplasm of breast; Z90.11 Acquired absence of right breast and nipple
CPT/HCPCS: 77063; 77067